=== PATIENT | male | born 1950 | race Caucasian/White ===

== ENCOUNTER 2021-08-20 13:06 | Emergency (ER) | payer OTHER ==
[~2021-08-20] VITALS: Ht 180.3 cm; Wt 117.0 kg
[2021-08-20] MEDS ORDERED: Amlodipine Bes2.5 MG PO (15:27)
[2021-08-20] MEDS ORDERED: BUPROPION HCL200 M2 PO (15:29)
[2021-08-20] MEDS ORDERED: FISH OIL 1,2001 EAC7 PO (15:29)
[2021-08-20] MEDS ORDERED: Flonase 0.05% N16 GM (15:30)
[2021-08-20] MEDS ORDERED: NOVOLOG FL100 UNIT/3 (15:31)
[2021-08-20] MEDS ORDERED: INSULANI (15:33)
[2021-08-20] MEDS ORDERED: Synthroid200 MCG PO (15:34)
[2021-08-20] MEDS ORDERED: LISI20 PO (15:34)
[2021-08-20] MEDS ORDERED: SILD50TA PO (15:35)
[2021-08-20] MEDS ORDERED: NITR100CA PO (15:35)
[2021-08-20] MEDS ORDERED: TAMS.4ER PO (15:36)
[2021-08-20] MEDS ORDERED: TRAZ50 (15:36)
[2021-08-20] MEDS ORDERED: Vitamin B Comple1 EA PO (15:36)
[2021-08-20] MEDS ORDERED: GABA100 PO (15:37)
[2021-08-20] MEDS ORDERED: ZOLP10 PO (15:37)
[2021-08-20] MEDS ORDERED: Acerola C500 MG PO (15:37)
[2021-08-20] MEDS ORDERED: AMOCLA875 PO (16:45)
== END 2021-08-20 16:55 | disposition home or self-care (01) ==
LOC: ER 13:06
DX: K57.32 Diverticulitis of large intestine without perforation or abscess without bleeding (principal); N39.0 Urinary tract infection, site not specified; E11.9 Type 2 diabetes mellitus without complications
CPT/HCPCS: 74177; 83605; 96374; 99285-25; A9270; J2060; Q9967

== ENCOUNTER 2021-08-21 20:35 | Emergency (ER) | payer OTHER ==
[~2021-08-21 20:35] MED LIST: AMOCLA875 PO; Acerola C500 MG PO; Amlodipine Bes2.5 MG PO; BUPROPION HCL200 M2 PO; FISH OIL 1,2001 EAC7 PO; Flonase 0.05% N16 GM; GABA100 PO; INSULANI; LISI20 PO; NITR100CA PO; NOVOLOG FL100 UNIT/3; SILD50TA PO; Synthroid200 MCG PO; TAMS.4ER PO; TRAZ50; Vitamin B Comple1 EA PO; ZOLP10 PO
[2021-08-22] MEDS ORDERED: NITR100CA PO (04:25)
== END 2021-08-21 21:15 | disposition left against medical advice (07) ==
LOC: ER 20:35
DX: Z53.21 Procedure and treatment not carried out due to patient leaving prior to being seen by health care provider (principal)

== ENCOUNTER 2021-08-21 23:50 | Emergency (ER) | payer OTHER ==
[~2021-08-21] VITALS: Ht 180.3 cm; Wt 117.0 kg
[2021-08-22 03:57] LABS: Source, Urine Catheter
[2021-08-22 04:01] LABS: BASOPHILS ABSOLUTE AUTO 0.08 K/mm3 (0.00-0.23); BASOPHILS PERCENT AUTO 1 % (0-2); EOSINOPHILS PERCENT AUTO 10 % (0-6); Hematocrit 39.8 % (37.0-53.0); Hemoglobin 13.4 g/dL (13.5-17.5); IMMATURE GRAN ABSOLUTE AUTO 0.06 K/mm3 (0.00-0.10); IMMATURE GRAN PERCENT AUTO 1 % (0-1); LYMPHOCYTES ABSOLUTE AUTO 2.52 K/mm3 (0.84-5.20); LYMPHOCYTES PERCENT AUTO 23 % (21-46); MONOCYTES ABSOLUTE AUTO 0.61 K/mm3 (0.16-1.47); MONOCYTES PERCENT AUTO 6 % (4-13); Mean Corpuscular HGB 32.1 pg (26.0-34.0); Mean Corpuscular HGB Conc 33.7 g/dL (31.5-36.5); Mean Corpuscular Volume 95 fL (80-100); Mean Platelet Volume 9.3 fL (9.1-12.4); NEUTROPHILS ABSOLUTE AUTO 6.41 K/mm3 (1.96-9.15); NEUTROPHILS PERCENT AUTO 59 % (41-73); Platelet Count 209 K/mm3 (150-400); RDW Standard Deviation 48.9 fL (35.1-46.3); Red Blood Cell Count 4.18 M/mm3 (4.30-5.90); White Blood Cell Count 10.78 K/mm3 (4.00-11.30)
[2021-08-22 04:02] LABS: Bilirubin, Urine Neg (Neg); Blood, Urine 5+ (Neg); Glucose Qualitative, Urine Neg (Neg); Ketones, Urine Neg (Neg); Leukocyte Esterase, Urine 2+ (Neg); Nitrite, Urine Pos (Neg); Protein, Urine 2+ (Neg); Specific Gravity, Urine 1.015 (1.003-1.022); Urobilinogen, Urine 1+ (Normal)
[2021-08-22 04:06] LABS: Appearance, Urine Hazy (Clear); Color, Urine Yellow (P-Yellow)
[2021-08-22 04:07] LABS: Bacteria Few /hpf; Red Blood Cells, Urine TNTC /hpf (0-2); Squamous Epithelial Cells Not Seen /hpf (Few)
[2021-08-22 04:15] LABS: Anion Gap 4 mmol/L (6-16); Blood Urea Nitrogen 21 mg/dL (8-24); Bun/Creatinine Ratio 17.6 (12.0-20.0); CO2, Blood 26 mmol/L (21-32); Calcium, Blood 8.6 mg/dL (8.5-10.1); Chloride, Blood 109 mmol/L (98-108); Creatinine, Blood 1.19 mg/dL (0.60-1.20); Glomerular Filtration Rate >60 (60-); Glucose, Blood 152 mg/dL (70-99); Potassium, Blood 3.8 mmol/L (3.5-5.5); Sodium, Blood 139 mmol/L (136-145)
[2021-08-22] MEDS ORDERED: NITR100CA PO (04:25)
== END 2021-08-22 06:35 | disposition home or self-care (01) ==
LOC: ER 23:50
PROVIDERS: Student in an Organized Health Care Education/Training Program
DX: N39.0 Urinary tract infection, site not specified (principal); E11.9 Type 2 diabetes mellitus without complications; F17.200 Nicotine dependence, unspecified, uncomplicated; Z88.8 Allergy status to other drugs, medicaments and biological substances; Z79.4 Long term (current) use of insulin; Z79.899 Other long term (current) drug therapy
CPT/HCPCS: 36415; 51702; 80048; 81001; 85025; 87086; 96374; 99283-25; J0696

== ENCOUNTER 2023-11-17 20:59 | Emergency (ER) | payer OTHER ==
[~2023-11-17] VITALS: Ht 180.3 cm; Wt 111.1 kg
[2023-11-17 21:19] VITALS: BP 163/80
[2023-11-17] MEDS ORDERED: Naprosyn500 MG PO (21:29)
== END 2023-11-17 22:17 | disposition home or self-care (01) ==
LOC: ER 20:59
DX: M53.3 Sacrococcygeal disorders, not elsewhere classified (principal); M54.50 Low back pain, unspecified; Z88.8 Allergy status to other drugs, medicaments and biological substances; Z79.899 Other long term (current) drug therapy; Z79.4 Long term (current) use of insulin; E11.9 Type 2 diabetes mellitus without complications; I10 Essential (primary) hypertension; F17.200 Nicotine dependence, unspecified, uncomplicated
CPT/HCPCS: 96372; 99283-25; J1885

== ENCOUNTER 2024-04-10 18:05 | Inpatient (IN) | payer OTHER ==
[~2024-04-10] VITALS: Ht 180.3 cm; Wt 93.8 kg
[~2024-04-10 18:05] MED LIST changes: +ALBU90OI INH; +FAMO20 PO; +INSULANPEN SC; +LISI5 PO; +LORA10ER PO; +Naprosyn500 MG PO; +OMEGA-3 + VITA1 EAC2 PO; +ROPI.25 PO; -SILD50TA PO; -TRAZ50; +TRAZ50 PO; +Viagra100 MG PO
[2024-04-10 18:48] LABS: Hematocrit 24.6 % (37.0-53.0); Hemoglobin 8.3 g/dL (13.5-17.5); Mean Corpuscular HGB 33.3 pg (26.0-34.0); Mean Corpuscular HGB Conc 33.7 g/dL (31.5-36.5); Mean Corpuscular Volume 99 fL (80-100); Mean Platelet Volume 11.1 fL (9.1-12.4); NRBC ABSOLUTE 0.04 K/mm3 (0.00-0.02); NRBC Auto 0.1 /100 WBC (0.0-0.2); RDW Coefficient Variation 15.5 % (11.7-14.2); RDW Standard Deviation 53.1 fL (35.1-46.3); Red Blood Cell Count 2.49 M/mm3 (4.30-5.90)
[2024-04-10 18:56] LABS: White Blood Cell Count 59.54 K/mm3 (4.00-11.30)
[2024-04-10 18:57] LABS: Platelet Count 36 K/mm3 (150-400)
[2024-04-10 19:16] LABS: Albumin, Blood 3.3 g/dL (3.4-5.0); Albumin/Globulin Ratio 0.6 (0.8-1.8); BASOPHILS PERCENT MAN 0 % (0-2); Bilirubin, Total 0.6 mg/dL (0.1-1.0); Bun/Creatinine Ratio 9.1 (12.0-20.0); Calcium, Blood 14.1 mg/dL (8.5-10.1); Creatinine, Blood 6.79 mg/dL (0.60-1.20); EOSINOPHILS ABSOLUTE MAN 0.59 K/mm3 (0.00-0.68); EOSINOPHILS PERCENT MAN 1 % (0-6); Globulin, Blood 5.4 g/dL (2.2-4.0); LYMPHOCYTES % ATYPICAL MANUAL 23 % (0-0); LYMPHOCYTES ABSOLUTE MAN 54.18 K/mm3 (0.84-5.20); LYMPHOCYTES PERCENT MAN 68 % (21-46); MONOCYTES PERCENT MAN 0 % (4-13); MYELOCYTE ABSOLUTE MAN 0.59 K/mm3 (0.00-0.00); MYELOCYTE PERCENT MAN 1 % (0-0); NEUTROPHILS ABSOLUTE MAN 3.57 K/mm3 (1.96-9.15); Potassium, Blood 4.2 mmol/L (3.5-5.5); SEG NEUTROPHILS PERCENT MAN 6 % (41-73); TOTAL CELLS COUNTED 100; Total Protein, Blood 8.7 g/dL (6.4-8.2)
[2024-04-10 19:17] LABS: PROMYELOCYTE ABSOLUTE MAN 0.59 K/mm3 (0.00-0.00); PROMYELOCYTE PERCENT MAN 1 % (0-0)
[2024-04-10] MEDS ORDERED: NS 1,000 ML IV SCH ×2 (20:50→21:25)
[2024-04-10] MEDS ORDERED: Ondansetron HCl 2 MG / ML 2ML Vial IV PRN (21:20)
[2024-04-10] MEDS ORDERED: Acetaminophen 325 MG TABLET PO PRN (21:25)
[2024-04-10] MEDS ORDERED: Albuterol 2.5 MG/3 ML VIAL INH PRN (21:30)
[2024-04-10 22:16] LABS: Source, Urine Clean Catch
[2024-04-10] MEDS ORDERED: rOPINIRole HCl 1 MG Tab PO ONE (22:20)
[2024-04-10] MEDS ORDERED: rOPINIRole HCl 0.25 MG Tab PO ONE (22:25)
[2024-04-10 22:26] LABS: Appearance, Urine Clear (Clear); Bilirubin, Urine Neg (Neg); Blood, Urine 4+ (Neg); Color, Urine Yellow (P-Yellow); Glucose Qualitative, Urine Neg (Neg); Ketones, Urine Neg (Neg); Leukocyte Esterase, Urine Neg (Neg); Nitrite, Urine Neg (Neg); Protein, Urine 3+ (Neg); Urobilinogen, Urine NORM (Normal); pH, Urine 6.5 (5.0-8.0)
[2024-04-10 22:41] LABS: Red Blood Cells, Urine 0-2 /hpf (0-2); Squamous Epithelial Cells Few /hpf (Few); White Blood Cells, Urine 0-2 /hpf (0-5)
[2024-04-10 22:42] LABS: Amorphous Light (0-Heavy); Bacteria Mod /hpf
[2024-04-10] MEDS ORDERED: TraZODone HCl 50 MG Tab PO PRN (23:40)
[2024-04-11] MEDS ORDERED: Zolpidem Tartrate 5 MG Tab PO SCH
[2024-04-11] MEDS ORDERED: Calcitonin Salmon 200 IU/ML 2ML Vial SC SCH (00:14)
[2024-04-11 02:06] VITALS: BP 157/76
[2024-04-11 03:57] LABS: Hematocrit 23.8 % (37.0-53.0); Mean Corpuscular HGB 33.3 pg (26.0-34.0); Mean Corpuscular HGB Conc 33.6 g/dL (31.5-36.5); Mean Corpuscular Volume 99 fL (80-100); Mean Platelet Volume 10.6 fL (9.1-12.4); NRBC ABSOLUTE 0.06 K/mm3 (0.00-0.02); NRBC Auto 0.1 /100 WBC (0.0-0.2); RDW Coefficient Variation 15.4 % (11.7-14.2); RDW Standard Deviation 52.9 fL (35.1-46.3)
[2024-04-11 04:06] LABS: Platelet Count 35 K/mm3 (150-400)
[2024-04-11 04:17] LABS: Magnesium, Blood 2.8 mg/dL (1.6-2.4)
[2024-04-11 04:29] LABS: Albumin, Blood 3.1 g/dL (3.4-5.0); Albumin/Globulin Ratio 0.6 (0.8-1.8); Bilirubin, Total 0.6 mg/dL (0.1-1.0); Bun/Creatinine Ratio 9.8 (12.0-20.0); Calcium, Blood 13.5 mg/dL (8.5-10.1); Creatinine, Blood 6.13 mg/dL (0.60-1.20); Globulin, Blood 5.1 g/dL (2.2-4.0); Phosphorus, Blood 5.6 mg/dL (2.5-4.9); Potassium, Blood 4.3 mmol/L (3.5-5.5); Total Protein, Blood 8.2 g/dL (6.4-8.2)
[2024-04-11 04:59] LABS: BASOPHILS PERCENT MAN 0 % (0-2); EOSINOPHILS PERCENT MAN 0 % (0-6); LYMPHOCYTES % ATYPICAL MANUAL 24 % (0-0); LYMPHOCYTES ABSOLUTE MAN 57.96 K/mm3 (0.84-5.20); LYMPHOCYTES PERCENT MAN 66 % (21-46); MONOCYTES ABSOLUTE MAN 0.64 K/mm3 (0.16-1.47); MONOCYTES PERCENT MAN 1 % (4-13); NEUTROPHILS ABSOLUTE MAN 5.79 K/mm3 (1.96-9.15); SEG NEUTROPHILS PERCENT MAN 9 % (41-73); TOTAL CELLS COUNTED 100
[2024-04-11 05:06] VITALS: BP 145/81
--- NOTE | 2024-04-11 05:09 | NUR ---
CRITIAL LAB VALUES CALLED TO DR SINGER.
--- NOTE | 2024-04-11 05:32 | NUR ---
SHIFT SUMMERY PT HAS BEEN ST ON THE STATION WORKER. BP WNL. OXYGEN SAT >90% ON ROOM AIR. PT W/GEN WEAKNESS. HE IS ALERT AND ORIENTED X 4. AFEBRILE. ADMITTED TO ICU APPX MIDNIGHT, NO ACUTE CHANGES THIS SHIFT. ALL CONSULTS CALLED ORDERED.
[2024-04-11] MEDS ORDERED: Levothyroxine Sodium 0.1 MG Tab PO SCH (06:00)
[2024-04-11] MEDS ORDERED: Insulin Human Lispro 100 Units/ML 3ML Syringe SC SCH (07:30)
[2024-04-11 08:00] VITALS: BP 124/57
[2024-04-11] MEDS ORDERED: AmLODIPine Besylate 5 MG Tab PO SCH (09:00)
[2024-04-11] MEDS ORDERED: Heparin Sodium,Porcine 5,000 UNIT/0.5 ML SDV SC SCH (09:00)
[2024-04-11] MEDS ORDERED: Tamsulosin HCl 0.4 MG Cap PO SCH (09:00)
--- NOTE | 2024-04-11 10:11 | NUR ---
Patient is lying in bed and alert. He tells me about his new diagnosis and his fears about cancer. He shares about his solid friend support and his strong [employer] swetha. I provided anxiety containment, theraeputic listening, gentle certified credit counselor and prayer. Patient responded well and showed signs of reduced stress.
[2024-04-11] MEDS ORDERED: rOPINIRole HCl 0.25 MG Tab PO SCH (12:25)
[2024-04-11] MEDS ORDERED: Darbepoetin Alfa In Albumn Sol 40 MCG/0.4 ML SC SCH (16:00)
--- NOTE | 2024-04-11 16:05 | NUR ---
INITAL VISIT. MET WITH BRYANNA TO ASSESS SYMPTOMS HE REPORTED THAT HE HAS BEEN WEAK APPROX 4-5 MONTHES HE REPORTED HE HAS LOST 40LBS DURING THAT TIME. HE REPORTED THAT HE HAS BEEN STRUGGLING WITH CONSTIPATION. HE SAID THAT HE HAD A BM YESTERDAY BUT HAD NOT HAD ONE FOR 6 DAYS PRIOR, AND HE FELT THAT HE STILL NEEDED TO HAVE A BM. HE HAS HAD BOUTS OF NAUSEA THAT HAS CONTRIBUTED TO HIS LOSS OF APPETITE, AND WT LOSS. PC WILL REAMIN AVALIABLE.
[2024-04-11 17:32] VITALS: BP 119/71
[2024-04-11] MEDS ORDERED: ONDA4ODT PO (17:46)
--- NOTE | 2024-04-11 18:06 | NUR ---
SUMMARY PT A/O X4. C/O RESTLESS LEGS TODAY. GOT ROPINIROLE ORDER WHICH IS HELPING. POOR APPETITE. AWAITING PERMACATH PLACEMENT. DR. SYLVESTER WILL BE PLACING TOMORROW. NPO AFTER MIDNIGHT. DR. PEARSON UPDATED ON PLAN FOR PLACEMENT BY SURGICAL TEAM. PT HAS BEEN OOB TO BATHROOM AND USING URINAL AT BEDSIDE. STEADY ON FEET STANDBY ASSIST FOR CORDS. DR. SILVER WAS IN TO SEE PT, NO NEW ORDERS AT THIS TIME. NO SIGN OF DISTRESS. USING CALL LIGHT APPROPRIATELY.
[2024-04-11 19:39] VITALS: BP 132/72
--- NOTE | 2024-04-11 19:51 | NUR ---
ASSUMED CARE ASSUMED CARE AT 1900. PT A/O X 4. PLEASANT AND COOPERATIVE WITH CARE. DENIES PAIN OR N/V. DOES C/O BEING "A LITTLE QUEASY" FOR THE PAST COUPLE OF MONTHS. VSS. NS AT 75ML/HR. UP WITH ONE ASSIST TO BRP. PLAN FOR NPO AT 0000. CALL LIGHT IN REACH
[2024-04-11] MEDS ORDERED: Insulin Glargine-Yfgn 100 Unit/mL 3 ML SYR SC SCH (21:00)
[2024-04-11 23:35] VITALS: BP 128/69
[2024-04-12] VITALS (11 sets, daily range): BP systolic 98–143; BP diastolic 62–87
[2024-04-12 02:26] LABS: Hematocrit 22.3 % (37.0-53.0); Hemoglobin 7.5 g/dL (13.5-17.5); Mean Corpuscular HGB 33.6 pg (26.0-34.0); Mean Corpuscular HGB Conc 33.6 g/dL (31.5-36.5); Mean Corpuscular Volume 100 fL (80-100); Mean Platelet Volume 11.5 fL (9.1-12.4); NRBC ABSOLUTE 0.06 K/mm3 (0.00-0.02); NRBC Auto 0.1 /100 WBC (0.0-0.2); RDW Coefficient Variation 15.8 % (11.7-14.2); RDW Standard Deviation 53.7 fL (35.1-46.3); Red Blood Cell Count 2.23 M/mm3 (4.30-5.90)
[2024-04-12 02:33] LABS: Platelet Count 30 K/mm3 (150-400); White Blood Cell Count 65.77 K/mm3 (4.00-11.30)
[2024-04-12 02:39] LABS: Anion Gap 13 mmol/L (3-11); Blood Urea Nitrogen 56 mg/dL (8-24); Bun/Creatinine Ratio 10.9 (12.0-20.0); CO2, Blood 20 mmol/L (21-32); Calcium, Blood 12.2 mg/dL (8.5-10.1); Chloride, Blood 114 mmol/L (98-108); Creatinine, Blood 5.12 mg/dL (0.60-1.20); Glomerular Filtration Rate 11 (60-); Glucose, Blood 169 mg/dL (70-99); Magnesium, Blood 2.1 mg/dL (1.6-2.4); Phosphorus, Blood 4.4 mg/dL (2.5-4.9); Potassium, Blood 4.2 mmol/L (3.5-5.5); Sodium, Blood 143 mmol/L (136-145)
[2024-04-12] MEDS ORDERED: Promethazine HCl 25 MG Tab PO PRN (03:00)
[2024-04-12] MEDS ORDERED: Promethazine HCl 25 MG Tab PO ONE (03:00)
[2024-04-12 03:05] LABS: BASOPHILS PERCENT MAN 0 % (0-2); EOSINOPHILS PERCENT MAN 0 % (0-6); LYMPHOCYTES % ATYPICAL MANUAL 30 % (0-0); LYMPHOCYTES ABSOLUTE MAN 59.19 K/mm3 (0.84-5.20); LYMPHOCYTES PERCENT MAN 60 % (21-46); MONOCYTES PERCENT MAN 0 % (4-13); NEUTROPHILS ABSOLUTE MAN 6.57 K/mm3 (1.96-9.15); SEG NEUTROPHILS PERCENT MAN 10 % (41-73); TOTAL CELLS COUNTED 100
--- NOTE | 2024-04-12 05:35 | NUR ---
SHIFT SUMMARY NO ACUTE EVENTS T/O NIGHT. PT C/O N/V INTERMITTENTLY T/O NIGHT. VOMITED TWICE. CALL TO HOSP D/T PT REMAINING N/V AFTER ZOFRAN. ORDERS RECEIVED. HOSP ALSO NOTIFIED OF CRITICAL LABS. PT ALSO C/O RESTLESS LEGS. MEDICATED PER EMAR AND WARM BLANKETS ON LEGS WITH VOICED RELIEF. STATES WORSE THIS MORNING, AND REQUESTING HIS REQUIP EARLY. THIS RN STATES THAT I'LL CALL THE DOCTOR TO ASK AND PT SPEAKS LOUDLY "I'M JUST VOICING A CONCERN, I'M HAVING SURGERY AND CAN'T BE MOVING AROUND" WHILE WAVING ARMS AND LEGS. EDUCATED PT ON THE NEED FOR AN ORDER TO GIVE IT EARLY AND ASKS IF ANY OTHER MEDS HELP. PT STATES ONLY REQUIP HELPS. VSS. ST RATE 100'S. PT NPO SINCE 0000. VOIDS IN BR AND AT BEDSIDE WITH URINAL. CALL LIGHT IN REACH. WILL REPORT TO ONCOMING RN.
--- NOTE | 2024-04-12 06:25 | NUR ---
WATCH PT STATES HE TOOK OFF A BLACK WATCH YESTERDAY WHEN IV WAS BEING PLACED AND SET IT ON HIS TABLE. TABLE, LINEN AND PT BELONGING BAG SEARCHED BUT UNABLE TO FIND IT.
[2024-04-12] MEDS ORDERED: NS 1,000 ML IV SCH (06:35)
--- NOTE | 2024-04-12 07:35 | NUR ---
SHIFT ASSESSMENT ASSUMED CARE OF PT @ 0700, BEDSIDE REPORT RECEIVED FROM [facility] NURSE. PT IN BED SITTING UPRIGHT, A&OX4, FOLLOWING COMMANDS. STANDS AT BEDSIDE TO USE URINAL WITH NURSE, PT STATES HE DOES NOT USE ANY ASSISTIVE DEVICES AT HOME. PT ADVISED TO USE CALL LIGHT WHEN NEEDING TO STAND, HAS BEEN USING CALL LIGHT T/O NIGHT. PT C/O GENERALIZED SICKNESS, HASN'T FELT WELL FOR PAST COUPLE MONTHS. APPETITE DECREASED, MODERATE NAUSEA, HAS NOT NEEDED MEDICATION FROM THIS RN. PER DR. PEARSON WE WILL HOLD OFF ON PERMACATH PLACEMENT.
[2024-04-12] MEDS ORDERED: Piperacillin/Tazobactam Sod 3.375 GM in NS 100 ML IV SCH (08:00)
[2024-04-12] MEDS ORDERED: Azithromycin 500 MG in NS 250 ML IV SCH (09:00)
--- NOTE | 2024-04-12 09:05 | NUR ---
PROVIDER UPDATE: Dr Mendes called and notified of fall. Pt states he got dizzy when he attempted to get up from toilet alone after he was instructed to call before standing. Pt also states that hes "always kind of dizzy". Pt fell onto left side; no tenderness to palpation. Pt denies hitting his head. No new orders.
--- NOTE | 2024-04-12 09:20 | NUR ---
UPDATE DR SILVER AT BEDSIDE, PLAN FOR BONE MARROW ASPIRATE THIS AFTERNOON.
[2024-04-12 10:14] LABS: Albumin, Blood 2.9 g/dL (3.4-5.0); Anion Gap 12 mmol/L (3-11); Blood Urea Nitrogen 52 mg/dL (8-24); CO2, Blood 20 mmol/L (21-32); Calcium, Blood 11.1 mg/dL (8.5-10.1); Chloride, Blood 115 mmol/L (98-108); Creatinine, Blood 4.74 mg/dL (0.60-1.20); Glomerular Filtration Rate 12 (60-); Glucose, Blood 152 mg/dL (70-99); Phosphorus, Blood 3.8 mg/dL (2.5-4.9); Potassium, Blood 3.7 mmol/L (3.5-5.5); Sodium, Blood 143 mmol/L (136-145)
[2024-04-12] MEDS ORDERED: Sodium Bicarbonate 650 MG Tab PO SCH (10:45)
--- NOTE | 2024-04-12 11:37 | NUR ---
Spiritual Care Attempted At the referral of Chaplain Gómez, a visit was attempted but Pt. was soundly somnolent and seemed unarousable. Did not disturb Pt. Will remain available to Pt. through the day.
[2024-04-12] MEDS ORDERED: Polyethylene Glycol 3350 17 gm PO PRN (13:20)
--- NOTE | 2024-04-12 17:34 | NUR ---
SHIFT SUMMARY PT REMAINS A&OX4, COOPERATIVE WITH CARE. DENIES ANY NEW PAINS [id number] TO FALL. AMBULATED WITH GAIT BELT & NURSING ASSIST TO TOILET THIS EVENING WITHOUT TROUBLE. PT APOLOGETIC FOR NOT PULLING DRIP MOLDER STRING AND WAITING FOR HELP BACK TO BED EARLIER TODAY. BONE MARROW ASPIRATE COMPLETE, BANDAID OVER WOUND, NO BLEEDING NOTED. VS REMAIN STABLE. PT TOLERATING SMALL BITES OF FOOD BUT OVERALL APPETITE IS VERY POOR.
[2024-04-12] MEDS ORDERED: Thiamine HCl 100 MG Tab PO SCH (17:50)
--- NOTE | 2024-04-12 21:19 | NUR ---
ASSUMED CARE CARE WAS ASSUMED OF PT AT 1900. PT A/O X4, ABLE TO ANSWER QUESTIONS APPROPRIATELY. PT APPEARS SLIGHTLY IRRITABLE. PT 1 ASSIST WITH URINAL AT BEDSIDE, ABLE TO MAKE NEEDS KNOWN. PT COMPLAINING OF HAVING NO APETITE. PT ON RA, O2 SATS > 90%. CARDIAC MONITORING REFLECTS NSR, HR 80s-90s. SBP 120s. PT AFEBRILE.
[2024-04-13] VITALS (13 sets, daily range): BP systolic 101–131; BP diastolic 50–82
[2024-04-13 03:35] LABS: Hematocrit 19.5 % (37.0-53.0); Hemoglobin 6.6 g/dL (13.5-17.5); Mean Corpuscular HGB 33.8 pg (26.0-34.0); Mean Corpuscular HGB Conc 33.8 g/dL (31.5-36.5); Mean Corpuscular Volume 100 fL (80-100); Mean Platelet Volume 11.2 fL (9.1-12.4); NRBC ABSOLUTE 0.06 K/mm3 (0.00-0.02); NRBC Auto 0.1 /100 WBC (0.0-0.2); RDW Coefficient Variation 15.9 % (11.7-14.2); Red Blood Cell Count 1.95 M/mm3 (4.30-5.90); White Blood Cell Count 46.04 K/mm3 (4.00-11.30)
[2024-04-13 03:47] LABS: Platelet Count 23 K/mm3 (150-400)
[2024-04-13 03:49] LABS: Albumin, Blood 2.7 g/dL (3.4-5.0); Anion Gap 12 mmol/L (3-11); Blood Urea Nitrogen 48 mg/dL (8-24); Bun/Creatinine Ratio 11.1 (12.0-20.0); CO2, Blood 22 mmol/L (21-32); Chloride, Blood 115 mmol/L (98-108); Creatinine, Blood 4.34 mg/dL (0.60-1.20); Glomerular Filtration Rate 14 (60-); Glucose, Blood 139 mg/dL (70-99); Magnesium, Blood 2.3 mg/dL (1.6-2.4); Phosphorus, Blood 3.8 mg/dL (2.5-4.9); Potassium, Blood 3.6 mmol/L (3.5-5.5); Sodium, Blood 145 mmol/L (136-145)
[2024-04-13 04:49] LABS: BAND PERCENT MAN 1 % (0-8); BASOPHILS PERCENT MAN 0 % (0-2); EOSINOPHILS PERCENT MAN 0 % (0-6); LYMPHOCYTES % ATYPICAL MANUAL 28 % (0-0); LYMPHOCYTES ABSOLUTE MAN 40.51 K/mm3 (0.84-5.20); LYMPHOCYTES PERCENT MAN 60 % (21-46); MONOCYTES ABSOLUTE MAN 0.46 K/mm3 (0.16-1.47); MONOCYTES PERCENT MAN 1 % (4-13); PLASMA CELL ABSOLUTE MAN 0.46 K/mm3 (0.00-0.00); PLASMA CELLS PERCENT MAN 1 % (0-0); SEG NEUTROPHILS PERCENT MAN 9 % (41-73); TOTAL CELLS COUNTED 100
--- NOTE | 2024-04-13 05:49 | NUR ---
SHIFT SUMMARY PT REMAINS A/O X4, ABLE TO ANSWER QUESTIONS APPROPRIATELY. PT ABLE TO URINAL AT BEDSIDE WITH ASSISTANCE. PT COMPLAINED OF NAUSEA OCCASIONALLY THIS SHIFT WITH NO EMESIS. PT ABLE TO TOLERATE SOME PO FLUIDS. NOTIFIED HOSPITALIST OF LABS THIS MORNING, PT TO RECIEVE 1 UNIT PRBC. PT REMAINS ON RA, O2 SATS > 90%. CARDIAC MONITORING REFLECTS NSR AT THIS TIME, HR 80s. SBP 110s. PT AFEBRILE THIS SHIFT. PIV X2. NS INFUSING @ 50 mL/HR.
[2024-04-13] MEDS ORDERED: NS 500 ML IV SCH (05:55)
--- NOTE | 2024-04-13 07:00 | NUR ---
ASSUMED CARE OF PT AT 0700. PT RESTING ON HOSPITAL BED, AROUSES TO VERBAL STIMULI AND RESPONDS APPROPRIATELY. ON CONTINOUS ROUGH PLANER TENDER- SINUS RATE OF 80-90S OBSERVED. BP STABLE. PT IS CURRENTLY RECIEVING TRANSFUSION OF 1 UNIT OF BLOOD AND TOLERATING WELL. PT LUNGS CLEAR T/O AND HE IS ON RA, SATS>95%. USING CALL LIGHT APPROPRIATELY TO USE RR, STAND BY ASSIST NECCESSARY DUE TO RECENT FALL. CALL LIGHT W/ IN REACH. WILL CONTINUE TO MONITOR.
[2024-04-13] MEDS ORDERED: Vitamin B Cmplx/Vit C/Folic Ac 1 Tab PO SCH (09:00)
--- NOTE | 2024-04-13 09:15 | NUR ---
TRANSFER SUMMARY PT COMPLETES TRANSFUSION OF 1 UNIT PRBCS. TRANSFERRED VIA WC TO PCU ROOM 1. REPORT CALLED TO RALEIGH NATH. PT AOX4 AND COOPERATIVE.
--- NOTE | 2024-04-13 09:30 | NUR ---
PT TRANSFER ASSUMED CARE OF PT. AAOX4. VSS. TRANSFERED FROM WHEELCHAIR TO BED 1 PERSON MOD ASSIST. ORIENTED TO ROOM + CALL LIGHT USE, WATER GIVEN, DENIES FURTHER NEEDS, BED ALARM ON FOR SAFETY, CALL LIGHT IN REACH.
[2024-04-13] MEDS ORDERED: rOPINIRole HCl 0.25 MG Tab PO SCH ×2 (12:57→15:30)
[2024-04-13 13:35] LABS: HEP-IND THROMBOCYTOPEN PF4,IGG 0.071 OD (<=0.399)
--- NOTE | 2024-04-13 17:12 | NUR ---
SHIFT SUMMARY PT TRASNFER FROM ICU TODAY. AAOX4/FLAT AFFECT/IMPULSIVE AT TIMES. PT SBA TO TRANSFER, BED ALARM ON FOR SAFETY. DENIES DISCOMFORT/NAUSEA SINCE TRANSFER. GOOD URINE OUTPUT THIS SHIFT, CLEAR/YELLOW. 2ND UNIT OF PRBCs FINISHING INFUSING NOW. VSS. TELEMTRY NSR TO ST. NS AT 50cc PER HR. LS CLEAR. TINGLING TO BLE AT BASELINE. SCDs FOR DVT PROPHOLYXIS. PT USES CALL LIGHT INTERMITTENTLY, IMPULSIVE AT TIMES. PT CURRENTLY RESTING IN BED WITH CALL LIGHT IN REACH.
--- NOTE | 2024-04-14 00:23 | NUR ---
UPDATE AT APPROXIMATELY 00:00 PT CALLED FARM BOSS INTO ROOM DUE TO FEELING "WET". FARM BOSS ALERTED THIS RN THAT PT HAD PULLED OUT HIS L FA IV AND WAS BLEEDING. PT WAS FOUND COVERED IN BLOOD, BLOOD SATURATED GOWN AND SOME OF THE BED SHEETS. PT REPORTS FEELING WELL AND THERE HAS BEEN NO CHANGE IN STATUS. PRESSURE DRESSING APPLIED TO AREA AND BLEEDING STOPPED. PT AND BED CLEANED.
[2024-04-14 03:23] VITALS: BP 104/50
[2024-04-14 04:19] LABS: Hematocrit 21.4 % (37.0-53.0); Hemoglobin 7.3 g/dL (13.5-17.5); Mean Corpuscular HGB Conc 34.1 g/dL (31.5-36.5); Mean Platelet Volume 11.4 fL (9.1-12.4); NRBC ABSOLUTE 0.06 K/mm3 (0.00-0.02); NRBC Auto 0.2 /100 WBC (0.0-0.2); RDW Coefficient Variation 17.7 % (11.7-14.2); RDW Standard Deviation 57.7 fL (35.1-46.3); Red Blood Cell Count 2.28 M/mm3 (4.30-5.90); White Blood Cell Count 37.73 K/mm3 (4.00-11.30)
[2024-04-14 04:22] LABS: Mean Corpuscular Volume 94 fL (80-100)
[2024-04-14 04:23] LABS: Platelet Count 21 K/mm3 (150-400)
[2024-04-14 04:35] LABS: Albumin, Blood 2.5 g/dL (3.4-5.0); Anion Gap 11 mmol/L (3-11); Blood Urea Nitrogen 45 mg/dL (8-24); Bun/Creatinine Ratio 11.4 (12.0-20.0); CO2, Blood 22 mmol/L (21-32); Calcium, Blood 11.4 mg/dL (8.5-10.1); Chloride, Blood 114 mmol/L (98-108); Creatinine, Blood 3.94 mg/dL (0.60-1.20); Glomerular Filtration Rate 15 (60-); Glucose, Blood 115 mg/dL (70-99); Magnesium, Blood 2.1 mg/dL (1.6-2.4); Potassium, Blood 3.3 mmol/L (3.5-5.5); Sodium, Blood 144 mmol/L (136-145)
[2024-04-14 04:39] LABS: BAND PERCENT MAN 5 % (0-8); BASOPHILS ABSOLUTE MAN 0.37 K/mm3 (0.00-0.23); BASOPHILS PERCENT MAN 1 % (0-2); EOSINOPHILS PERCENT MAN 0 % (0-6); MONOCYTES ABSOLUTE MAN 0.75 K/mm3 (0.16-1.47); MONOCYTES PERCENT MAN 2 % (4-13); NEUTROPHILS ABSOLUTE MAN 7.54 K/mm3 (1.96-9.15); SEG NEUTROPHILS PERCENT MAN 15 % (41-73); TOTAL CELLS COUNTED 100
[2024-04-14 04:40] LABS: LYMPHOCYTES % ATYPICAL MANUAL 18 % (0-0); LYMPHOCYTES ABSOLUTE MAN 29.42 K/mm3 (0.84-5.20); LYMPHOCYTES PERCENT MAN 60 % (21-46)
--- NOTE | 2024-04-14 04:51 | NUR ---
SHIFT SUMMARY PT IS A&O X4, ABLE TO MAKE NEEDS KNOWN. IMPULSIVE AT TIMES, BED ALARM ON. PT IS SBA, USES URINAL AT BEDSIDE. VSS, LUNGS CLEAR, SPO2 >93% RA. PT HAD TEMPERATURE OF 100.4 AT BEGINNING OF SHIFT. ADMINISTERED TYLENOL PER EMAR AND TURNED DOWN TEMPERATURE OF ROOM. TEMPERATURE THEN REMAINED WNL FOR REMAINDER OF SHIFT. NS INFUSING. PT DENIES SOB OR CP. PT IS RESTING IN BED, CALL LIGHT WITHIN REACH, BED IN LOWEST POSITION, BREATHING EVEN AND UNLABORED.
[2024-04-14] MEDS ORDERED: Potassium Chloride 20 MEQ TabCR PO ONE (06:00)
[2024-04-14 07:33] VITALS: BP 121/69
[2024-04-14 10:56] VITALS: BP 112/54
[2024-04-14] MEDS ORDERED: Calcium Carbonate 500 MG Tab Chew PO PRN (14:50)
[2024-04-14 15:42] VITALS: BP 130/69
--- NOTE | 2024-04-14 17:47 | NUR ---
SHIFT SUMMARY NO ACUTE CHANGES THIS SHIFT. PT A&OX4. SP02>90% ON RA. TELEMETRY SHOWS NSR, HR MOSTLY 80'S. 100'S W/ AMBULATION. PT DENIES PAIN. C/O OF ACID REFLUX. CALL PLACED TO MD HOLLAND. MD HOLLAND W/ ORDERS FOR TUMS, SEE EMAR. PT STATES TODAY IS THE "FIRST BREAKFAST IN 5 DAYS" THAT HES HAD APPETITE TO EAT. SHORTLY AFTER, DEVELOPED LOOSE STOOL. PT STOOD AT BESIDE W/ FWW TO VOID W/ URINAL. AMBLUATED TO BATHROOM W/ ASSISTANCE AND FWW FOR BM. ABX INFUSED PER EMAR. CALL LIGHT IN REACH. PT RESTING IN ROOM.
--- NOTE | 2024-04-14 19:56 | NUR ---
PATIENT INSISTING THAT HE NEEDS HIS REQUIP OFF SCHEDULE. DISCUSSED WHEN HE TAKE IT AT HOME, AND MEDICATED ACCORDINGLY. MEDICATION GIVEN EARLY PER PATIENT REQUEST/INSISTENCE.
[2024-04-14 20:56] VITALS: BP 138/73
[2024-04-14 20:57] VITALS: BP 136/77
--- NOTE | 2024-04-14 21:08 | NUR ---
UPDATE THIS RN ALONG WITH WILLI CARDONA RN NOTICED TELEMETRY CHANGES WITH HEART RATE IN THE 180-200'S. BOTH RN'S TO BEDSIDE, PT NOTED TO BE ALERT AND LYING ON HIS SIDE. PT DENIED ANY CP, PRESSURE OR DIZZINESS. VITAL TAKEN WITH SBP IN THE 130'S. EKG TAKEN TO CONFIRM TELEMETRY, EKG READ SR 90'S. EKG PLACED IN CHART. TELEMETRY LEADS, STICKERS AND ADAPTER CHANGED. SAMANTHA RIVERA OF THIS NOTE
--- NOTE | 2024-04-14 21:40 | NUR ---
EVENING BLOOD SUGAR 142.
[2024-04-15 04:10] LABS: Hematocrit 22.2 % (37.0-53.0); Hemoglobin 7.5 g/dL (13.5-17.5)
[2024-04-15 04:30] LABS: Albumin, Blood 2.7 g/dL (3.4-5.0); Anion Gap 11 mmol/L (3-11); Blood Urea Nitrogen 38 mg/dL (8-24); Bun/Creatinine Ratio 10.6 (12.0-20.0); CO2, Blood 21 mmol/L (21-32); Calcium, Blood 11.7 mg/dL (8.5-10.1); Chloride, Blood 112 mmol/L (98-108); Creatinine, Blood 3.57 mg/dL (0.60-1.20); Glomerular Filtration Rate 17 (60-); Glucose, Blood 159 mg/dL (70-99); Magnesium, Blood 1.9 mg/dL (1.6-2.4); Phosphorus, Blood 3.1 mg/dL (2.5-4.9); Sodium, Blood 141 mmol/L (136-145)
[2024-04-15 04:34] VITALS: BP 138/64
[2024-04-15] MEDS ORDERED: Potassium Chloride 20 MEQ TabCR PO ONE (06:00)
[2024-04-15 08:02] VITALS: BP 126/81
[2024-04-15 08:13] LABS: Hematocrit 22.5 % (37.0-53.0); Hemoglobin 7.5 g/dL (13.5-17.5); Mean Corpuscular HGB 32.2 pg (26.0-34.0); Mean Corpuscular HGB Conc 33.3 g/dL (31.5-36.5); Mean Corpuscular Volume 97 fL (80-100); Mean Platelet Volume 10.4 fL (9.1-12.4); NRBC ABSOLUTE 0.06 K/mm3 (0.00-0.02); NRBC Auto 0.1 /100 WBC (0.0-0.2); RDW Coefficient Variation 17.5 % (11.7-14.2); RDW Standard Deviation 58.2 fL (35.1-46.3); Red Blood Cell Count 2.33 M/mm3 (4.30-5.90); White Blood Cell Count 42.73 K/mm3 (4.00-11.30)
[2024-04-15 08:25] LABS: Platelet Count 22 K/mm3 (150-400)
[2024-04-15 09:08] LABS: BASOPHILS PERCENT MAN 0 % (0-2); LYMPHOCYTES % ATYPICAL MANUAL 12 % (0-0); TOTAL CELLS COUNTED 100
[2024-04-15 09:17] LABS: EOSINOPHILS ABSOLUTE MAN 0.42 K/mm3 (0.00-0.68); EOSINOPHILS PERCENT MAN 1 % (0-6); LYMPHOCYTES ABSOLUTE MAN 34.61 K/mm3 (0.84-5.20); LYMPHOCYTES PERCENT MAN 69 % (21-46); MONOCYTES PERCENT MAN 0 % (4-13); NEUTROPHILS ABSOLUTE MAN 7.69 K/mm3 (1.96-9.15); SEG NEUTROPHILS PERCENT MAN 18 % (41-73)
[2024-04-15 11:45] VITALS: BP 123/73
[2024-04-15] MEDS ORDERED: LevoFLOXacin 750 MG Tab PO ONE (15:50)
[2024-04-15] MEDS ORDERED: B-1100 M2 PO (16:28)
[2024-04-15] MEDS ORDERED: B-COMPLEX WITH1 EAC2 PO (16:28)
[2024-04-15] MEDS ORDERED: PROBIOTIC1 EA13 PO ×2 (16:30→16:36)
[2024-04-15] MEDS ORDERED: LEVFLO500 PO (16:34)
--- NOTE | 2024-04-15 17:28 | NUR ---
DISCHARGE: PT HAS BEEN A&Ox4, SBA FOR AMBULATION. PT HAS DENIED SOB, O2 SATS >93% ON RA. PT HAS DENIED CP, SR/ST ON MONITOR W/RATE 90s-100s. PT HAS BEEN CLEARED FOR DISCHARGE HOME BY PROVIDER. ALL IV ACCESS DC'd WNL. PT DRESSES SELF. DC PAPERWORK AND INSTRUCTIONS PROVIDED, ALL QUESTIONS HAVE BEEN ANSWERED. PT ESCORTED FROM UNIT VIA W/C W/OUT INCIDENT.
== END 2024-04-15 17:24 | disposition home or self-care (01) | DRG 682 ==
LOC: ER 18:05 → ERHOLD 21:20 → ICUE 21:20 → ER 21:20 → ICUE 23:40 → PCU 04-13 08:46
PROVIDERS: Internal Medicine; Internal Medicine Nephrology; Nurse Practitioner Acute Care; Student in an Organized Health Care Education/Training Program; ADMIT Student in an Organized Health Care Education/Training Program
PROC: 079T3ZX Drainage of Bone Marrow, Percutaneous Approach, Diagnostic (ICD-10-PCS; 2024-04-12)
PROC: 30233N1 Transfusion of Nonautologous Red Blood Cells into Peripheral Vein, Percutaneous Approach (ICD-10-PCS; principal; 2024-04-13)
DX: N17.9 Acute kidney failure, unspecified (principal); J69.0 Pneumonitis due to inhalation of food and vomit; C90.00 Multiple myeloma not having achieved remission; E87.1 Hypo-osmolality and hyponatremia; E87.20 Acidosis, unspecified; E87.0 Hyperosmolality and hypernatremia; E83.52 Hypercalcemia; D63.1 Anemia in chronic kidney disease; I12.9 Hypertensive chronic kidney disease with stage 1 through stage 4 chronic kidney disease, or unspecified chronic kidney disease; N18.30 Chronic kidney disease, stage 3 unspecified; Z66 Do not resuscitate; E86.0 Dehydration; D69.6 Thrombocytopenia, unspecified; E87.6 Hypokalemia; E11.22 Type 2 diabetes mellitus with diabetic chronic kidney disease; E03.9 Hypothyroidism, unspecified; N40.0 Benign prostatic hyperplasia without lower urinary tract symptoms; G25.81 Restless legs syndrome; Z99.2 Dependence on renal dialysis; Z79.4 Long term (current) use of insulin; Z79.890 Hormone replacement therapy; Z79.891 Long term (current) use of opiate analgesic; Z79.899 Other long term (current) drug therapy; Z88.8 Allergy status to other drugs, medicaments and biological substances; Z87.442 Personal history of urinary calculi; B95.8 Unspecified staphylococcus as the cause of diseases classified elsewhere
CPT/HCPCS: 36415; 36430; 71045; 76770; 80053; 80069; 81001; 82947; 83735; 84100; 84145; 85014; 85018; 85025; 86022; 86850; 86900; 86901; 86923; 87040; 87077; 93005; 93010; 94760; 94762; 97110; 97161; 97530; 99285-25; A9270; J0456; J0630; J0881; J1815; J2405; J2543; J7030; J7040; J7050; P9016

== ENCOUNTER 2024-04-20 20:36 | Inpatient (IN) | payer OTHER ==
[~2024-04-20] VITALS: Ht 188 cm; Wt 88.1 kg
[~2024-04-20 20:36] MED LIST changes: +B-1100 M2 PO; +B-COMPLEX WITH1 EAC2 PO; +LEVFLO500 PO; -NOVOLOG FL100 UNIT/3; +NOVOLOG FL100 UNIT/3 SC; +ONDA4ODT PO; +PROBIOTIC1 EA13 PO
[2024-04-20 21:42] LABS: Hematocrit 20.1 % (37.0-53.0); Hemoglobin 6.7 g/dL (13.5-17.5); Mean Corpuscular HGB 32.2 pg (26.0-34.0); Mean Corpuscular HGB Conc 33.3 g/dL (31.5-36.5); Mean Corpuscular Volume 97 fL (80-100); Mean Platelet Volume 9.5 fL (9.1-12.4); NRBC ABSOLUTE 0.04 K/mm3 (0.00-0.02); NRBC Auto 0.1 /100 WBC (0.0-0.2); RDW Coefficient Variation 17.6 % (11.7-14.2); RDW Standard Deviation 57.1 fL (35.1-46.3); Red Blood Cell Count 2.08 M/mm3 (4.30-5.90)
[2024-04-20 21:44] LABS: Platelet Count 24 K/mm3 (150-400); White Blood Cell Count 58.03 K/mm3 (4.00-11.30)
[2024-04-20 22:00] LABS: Albumin, Blood 2.6 g/dL (3.4-5.0); Albumin/Globulin Ratio 0.5 (0.8-1.8); Bilirubin, Total 0.5 mg/dL (0.1-1.0); Calcium, Blood 14.4 mg/dL (8.5-10.1); Creatinine, Blood 5.43 mg/dL (0.60-1.20); Globulin, Blood 5.5 g/dL (2.2-4.0); Potassium, Blood 3.9 mmol/L (3.5-5.5); Total Protein, Blood 8.1 g/dL (6.4-8.2)
[2024-04-20 22:08] LABS: BASOPHILS PERCENT MAN 0 % (0-2); EOSINOPHILS ABSOLUTE MAN 0.58 K/mm3 (0.00-0.68); EOSINOPHILS PERCENT MAN 1 % (0-6); LYMPHOCYTES % ATYPICAL MANUAL 1 % (0-0); LYMPHOCYTES ABSOLUTE MAN 53.38 K/mm3 (0.84-5.20); LYMPHOCYTES PERCENT MAN 91 % (21-46); MONOCYTES ABSOLUTE MAN 0.58 K/mm3 (0.16-1.47); MONOCYTES PERCENT MAN 1 % (4-13); NEUTROPHILS ABSOLUTE MAN 3.48 K/mm3 (1.96-9.15); SEG NEUTROPHILS PERCENT MAN 6 % (41-73); TOTAL CELLS COUNTED 100
[2024-04-20 22:37] LABS: Uric Acid, Blood 13.8 mg/dL (3.5-7.2)
[2024-04-20 22:38] LABS: Phosphorus, Blood 5.4 mg/dL (2.5-4.9)
[2024-04-20 22:41] LABS: IMMATURE RETIC FRACTION 20.8 % (2.3-16.0); RETICULOCYTE ABSOLUTE 0.0143 M/mm3 (0.0200-0.1100); RETICULOCYTE COUNT PERCENT 0.68 % (0.50-2.50)
[2024-04-20] MEDS ORDERED: NS 1,000 ML IV SCH (22:45)
[2024-04-21] VITALS (19 sets, daily range): BP systolic 124–161; BP diastolic 49–88
[2024-04-21 00:12] LABS: Source, Urine Clean Catch
[2024-04-21 00:21] LABS: Bilirubin, Urine Neg (Neg); Blood, Urine 4+ (Neg); Glucose Qualitative, Urine Neg (Neg); Ketones, Urine Neg (Neg); Leukocyte Esterase, Urine Neg (Neg); Nitrite, Urine Neg (Neg); Protein, Urine 3+ (Neg); Specific Gravity, Urine 1.015 (1.003-1.022); Urobilinogen, Urine NORM (Normal); pH, Urine 6.5 (5.0-8.0)
[2024-04-21 00:28] LABS: Appearance, Urine Clear (Clear); Color, Urine Pale Yellow (P-Yellow)
[2024-04-21 00:31] LABS: Bacteria Not Seen /hpf; Red Blood Cells, Urine 0-2 /hpf (0-2); Squamous Epithelial Cells Not Seen /hpf (Few); White Blood Cells, Urine 0-2 /hpf (0-5)
[2024-04-21 00:42] LABS: Creatinine, Urine Random 59.8 mg/dL (27.00-270.00)
[2024-04-21] MEDS ORDERED: Acetaminophen 325 MG TABLET PO PRN (01:05)
[2024-04-21] MEDS ORDERED: RASBURICASE IV ONE ×2 (01:10→01:15)
[2024-04-21] MEDS ORDERED: Calcitonin Salmon 200 IU/ML 2ML Vial SC ONE (01:10)
[2024-04-21] MEDS ORDERED: NS IV ONE ×2 (01:10→01:15)
[2024-04-21] MEDS ORDERED: Lactated Ringer's 1,000 ML IV SCH (02:00)
[2024-04-21] MEDS ORDERED: rOPINIRole HCl 0.25 MG Tab PO ONE ×2 (03:00→03:25)
[2024-04-21] MEDS ORDERED: NS 1,000 ML IV SCH ×2 (03:05→05:55)
[2024-04-21] MEDS ORDERED: rOPINIRole HCl 1 MG Tab PO ONE (03:40)
[2024-04-21] MEDS ORDERED: Levothyroxine Sodium 0.1 MG Tab PO SCH (06:00)
--- NOTE | 2024-04-21 06:42 | NUR ---
DOMITILA IS A&O X4. NEURO INTACT. CARDAIC PATIENT HAS BEEN NSR-ST. SBP HAS BEEN 120-130S. RESP PATIENT IS ON RA. PATIENT IS VODING USING THE URINAL. NO BM OVERNIGHT. PLAN TO HAVE SURGERY CONSULT FOR A PERMCATH.
[2024-04-21 06:44] LABS: Hemoglobin 7.5 g/dL (13.5-17.5); Mean Corpuscular HGB 31.5 pg (26.0-34.0); Mean Corpuscular HGB Conc 34.1 g/dL (31.5-36.5); NRBC ABSOLUTE 0.04 K/mm3 (0.00-0.02); NRBC Auto 0.1 /100 WBC (0.0-0.2); RDW Coefficient Variation 17.6 % (11.7-14.2); RDW Standard Deviation 55.5 fL (35.1-46.3); Red Blood Cell Count 2.38 M/mm3 (4.30-5.90); White Blood Cell Count 47.31 K/mm3 (4.00-11.30)
[2024-04-21 06:46] LABS: Mean Corpuscular Volume 92 fL (80-100)
[2024-04-21 06:48] LABS: Platelet Count 18 K/mm3 (150-400)
[2024-04-21 06:54] LABS: International Normalized Ratio 1.08; Prothrombin Time Results 11.5 Sec (9.7-11.5)
[2024-04-21 07:10] LABS: Albumin, Blood 2.6 g/dL (3.4-5.0); Anion Gap 11 mmol/L (3-11); Blood Urea Nitrogen 55 mg/dL (8-24); CO2, Blood 22 mmol/L (21-32); Calcium, Blood 13.1 mg/dL (8.5-10.1); Chloride, Blood 111 mmol/L (98-108); Glomerular Filtration Rate 12 (60-); Glucose, Blood 161 mg/dL (70-99); Phosphorus, Blood 4.6 mg/dL (2.5-4.9); Potassium, Blood 3.3 mmol/L (3.5-5.5); Sodium, Blood 141 mmol/L (136-145)
[2024-04-21] MEDS ORDERED: Insulin Regular 100 UNIT/ML 10ML Vial SC SCH (07:30)
[2024-04-21 07:56] LABS: BAND PERCENT MAN 1 % (0-8); BASOPHILS PERCENT MAN 0 % (0-2); EOSINOPHILS ABSOLUTE MAN 0.94 K/mm3 (0.00-0.68); EOSINOPHILS PERCENT MAN 2 % (0-6); LYMPHOCYTES ABSOLUTE MAN 41.63 K/mm3 (0.84-5.20); LYMPHOCYTES PERCENT MAN 88 % (21-46); MONOCYTES PERCENT MAN 0 % (4-13); NEUTROPHILS ABSOLUTE MAN 4.73 K/mm3 (1.96-9.15); SEG NEUTROPHILS PERCENT MAN 9 % (41-73); TOTAL CELLS COUNTED 100
[2024-04-21] MEDS ORDERED: Sevelamer Carbonate 800 MG Tab PO SCH (08:30)
[2024-04-21] MEDS ORDERED: Vitamin B Cmplx/Vit C/Folic Ac 1 Tab PO SCH (09:00)
[2024-04-21] MEDS ORDERED: Lactobacil 2-S.Thermo-Bifido 1 1 Cap PO SCH (09:00)
[2024-04-21] MEDS ORDERED: Hydrocortisone 1% Cream 30 gm TOP PRN (09:45)
[2024-04-21] MEDS ORDERED: BIOTENE SALIVA STIMULANT 44.3 ML BOTTLE MM SCH (09:45)
[2024-04-21] MEDS ORDERED: Loratadine 10 MG Tab PO PRN (09:55)
[2024-04-21 09:59] LABS: Albumin, Blood 2.4 g/dL (3.4-5.0); Anion Gap 12 mmol/L (3-11); Blood Urea Nitrogen 53 mg/dL (8-24); CO2, Blood 21 mmol/L (21-32); Calcium, Blood 12.7 mg/dL (8.5-10.1); Chloride, Blood 110 mmol/L (98-108); Creatinine, Blood 4.84 mg/dL (0.60-1.20); Glomerular Filtration Rate 12 (60-); Glucose, Blood 188 mg/dL (70-99); Phosphorus, Blood 4.1 mg/dL (2.5-4.9); Potassium, Blood 3.4 mmol/L (3.5-5.5); Sodium, Blood 140 mmol/L (136-145)
[2024-04-21] MEDS ORDERED: AmLODIPine Besylate 5 MG Tab PO SCH (10:00)
--- NOTE | 2024-04-21 10:49 | NUR ---
Pt transferred to medical floor room 303 at approximately 1020. Pt alert and oriented at time of transfer, no acute needs. All personal belongings sent upstairs with patient. Report given to RN assuming care.
[2024-04-21] MEDS ORDERED: Ondansetron 4 MG SoluTab MM PRN (10:55)
[2024-04-21] MEDS ORDERED: Calcitonin Salmon 200 IU/ML 2ML Vial SC SCH (11:00)
--- NOTE | 2024-04-21 11:44 | NUR ---
RN NOTE MR HOLBROOK WAS TRANSFERED FROM ICU TO MEDICAL FLOOR AT 1025HRS. RED RASH ACROSS TORSO. HYDROCORTISONE CREAM APPLIED. C/O DRY MOUTH AND GIVEN ORAL SPRAY WITH SOME RELIEF. STOOD TO URINATE, UNSTEADY AT SIDE OF BED, RN AT HIS SIDE. DR PEARSON CALLED WITH LAB RESULTS, STAT LIVER PANEL AND STAT URIC ACID ORDERED, READ BACK DONE AND ORDER ENTERED INTO [facility].
[2024-04-21 12:48] LABS: Albumin, Blood 2.4 g/dL (3.4-5.0); Albumin/Globulin Ratio 0.5 (0.8-1.8); Bilirubin, Direct 0.2 mg/dL (0.0-0.3); Bilirubin, Indirect 0.4 mg/dL (0.1-0.7); Bilirubin, Total 0.6 mg/dL (0.1-1.0); Globulin, Blood 4.9 g/dL (2.2-4.0); Total Protein, Blood 7.3 g/dL (6.4-8.2); Uric Acid, Blood 13.5 mg/dL (3.5-7.2)
--- NOTE | 2024-04-21 12:58 | NUR ---
MD CALL DR PEARSON NOTIFIED OF STAT LAB RESULTS. TELEPHONE ORDER FOR ALLOPURINOL 100MG PO QD. READ BACK DONE AND ORDER ENTERED INTO [facility].
--- NOTE | 2024-04-21 14:28 | NUR ---
MD CALL MR YUSEF REQUESTED REPINEROL FOR RESTLESS LEG. DR BAKER CALLED AND NOTIFIED. TELEPHONE ORDER TO GIVE DOSE NOW. READ BACK DONE AND ORDER ENTERED INTO [facility].
[2024-04-21] MEDS ORDERED: rOPINIRole HCl 0.25 MG Tab PO SCH ×2 (14:30→21:00)
[2024-04-21] MEDS ORDERED: Darbepoetin Alfa In Albumn Sol 40 MCG/0.4 ML SC ONE (16:00)
[2024-04-21] MEDS ORDERED: BuPROPion HCl SR 100 MG TabCR PO SCH (17:00)
--- NOTE | 2024-04-21 17:28 | NUR ---
DR. SILVER CALLED AND REQUESTED PT BE STARTED ON A TOTAL OF DEXAMETHASONE 40 MG PO. GIVE DEXAMETHASONE 20 MG PO NOW AND [address] BAKER NOTIFIED OF DR. SILVER'S REQUEST.
--- NOTE | 2024-04-21 17:52 | NUR ---
RN NOTE DR OROZCO CALLED AND CHANGED DEXAMETHASONE FROM PRIOR ORDER TO 40MG PO X 1 THIS EVENING. READ BACK DONE AND ORDER ENTERED INTO [facility].
[2024-04-21] MEDS ORDERED: dexAMETHasone 4 MG TAB PO ONE (17:55)
[2024-04-21] MEDS ORDERED: dexAMETHasone 4 MG TAB PO SCH (18:00)
--- NOTE | 2024-04-21 18:19 | NUR ---
SHIFT SUMMARY MR HOLBROOK C/O GENERALLY NOT FEELING WELL. LOW ENERGY. HE WAS UNSTEADY STANDING AT BEDSIDE TO URINATE BUT DID WELL WALKING TO THE BATHROOM WITH GAITBELT AND WALKER. ON TELEMETRY IN SR, NO CALLS FROM SOCIAL SERVICE COORDINATOR. POOR APPETITE. HE HASN'T WANTED TO SIT UP IN THE CHAIR, WANTING TO STAY IN BED. DRY MOUTH RESOLVING AFTER USING MOISTURISING SPRAY FREQUENTLY. RASH ACROSS TORSO IS NO LONGER ITCHY AFTER HYDROCORTISONE CREAM APPLICATION X1. PLAN FOR NPO AFTER MN FOR PERMACATH PLACEMENT 04/22/24. BED LOW, CALL LIGHT IN REACH, BED ALARM ON.
[2024-04-21] MEDS ORDERED: Famotidine 20 MG Tab PO SCH (21:00)
[2024-04-21] MEDS ORDERED: TraZODone HCl 50 MG Tab PO SCH (21:00)
[2024-04-21] MEDS ORDERED: Zolpidem Tartrate 5 MG Tab PO SCH (21:00)
[2024-04-21] MEDS ORDERED: Insulin Glargine-Yfgn 100 Unit/mL 3 ML SYR SC SCH (21:00)
[2024-04-21] MEDS ORDERED: Tamsulosin HCl 0.4 MG Cap PO SCH (21:00)
[2024-04-22] VITALS (28 sets, daily range): BP systolic 95–147; BP diastolic 46–81
[2024-04-22] MEDS ORDERED: Polyethylene Glycol 3350 17 gm PO ONE (02:35)
--- NOTE | 2024-04-22 04:01 | NUR ---
PREFORMING MACHINE OPERATOR SUMMARY BP ELEVATED AND PULSE MORE RAPID, OTHERWISE VSS. ALERT AND ORIENTED. PLEASANT AFFECT AND COOPERATIVE WITH CARE. UP TO BEDSIDE WITH ASSIST TO VOID. ABLE TO REPOSITION SELF IN BED WITHOUT ASSIST FOR COMFORT AND SKIN MAINTENANCE. REQUESTED AND RECEIVED STOOL SOFTENER (AFTER MD ORDERED IT). MED TELE SINUS TACH. CONT PULSE OX - SATS IN THE 90'S. HAS BEEN RESTING WITH FEW INTERRUPTIONS. CALL LIGHT IN REACH, RAILS UP X 2, AND BED IN LOW POSITION FOR SAFETY. WILL CONTINUE TO MONITOR
--- NOTE | 2024-04-22 04:42 | NUR ---
NPO FOR PLANNED PERMACATH PLACEMENT TODAY.
[2024-04-22 04:53] LABS: Hematocrit 22.8 % (37.0-53.0); Hemoglobin 7.6 g/dL (13.5-17.5)
[2024-04-22 05:20] LABS: Albumin, Blood 2.7 g/dL (3.4-5.0); Anion Gap 15 mmol/L (3-11); Blood Urea Nitrogen 57 mg/dL (8-24); Bun/Creatinine Ratio 12.4 (12.0-20.0); CO2, Blood 19 mmol/L (21-32); Calcium, Blood 11.9 mg/dL (8.5-10.1); Chloride, Blood 108 mmol/L (98-108); Glomerular Filtration Rate 13 (60-); Glucose, Blood 314 mg/dL (70-99); Magnesium, Blood 2.8 mg/dL (1.6-2.4); Phosphorus, Blood 6.1 mg/dL (2.5-4.9); Potassium, Blood 4.3 mmol/L (3.5-5.5); Sodium, Blood 138 mmol/L (136-145)
[2024-04-22] MEDS ORDERED: Vitamin B Cmplx/Vit C/Folic Ac 1 Tab PO SCH (06:00)
[2024-04-22] MEDS ORDERED: Famotidine 20 MG Tab PO SCH (06:00)
[2024-04-22] MEDS ORDERED: CeFAZolin Sodium 2,000 MG in NS 100 ML IV SCH (07:30)
[2024-04-22] MEDS ORDERED: Polyethylene Glycol 3350 17 gm PO SCH (09:00)
[2024-04-22] MEDS ORDERED: Allopurinol 100 MG Tab PO SCH (09:00)
[2024-04-22] MEDS ORDERED: Fluticasone 0.05% Nasal Spray SCH (09:00)
[2024-04-22] MEDS ORDERED: Docosahexanoic Acid/EPA 1,000 MG CAP PO SCH (09:00)
[2024-04-22] MEDS ORDERED: Thiamine HCl 100 MG Tab PO SCH (09:00)
--- NOTE | 2024-04-22 10:51 | NUR ---
pt laying in bed awake a/ox3-4, pleasant and cooperative with care, follows commands well, denies pain, complaining about being thirsty and wants ice chips, after speaking with day surgery gave him a half a cup, lungs are clear t/o, resp even and unlabored, no cough noted, hrr, no edema noted, ppp+2, cap refill <3 sec, vs stable, afebrile, piv to lh site is clear and patent, btx4, abd flat soft nontender, voids without diff, skin c/w/d, maew, daisy, call light in reach.
[2024-04-22] MEDS ORDERED: dexAMETHasone 4 MG TAB PO ONE ×2 (11:15→18:15)
[2024-04-22] MEDS ORDERED: propofoL 20 ML IV ONE (12:09)
[2024-04-22] MEDS ORDERED: FentaNYL Citrate 50 MCG/ML 2 ML Injection ONE (12:10)
[2024-04-22] MEDS ORDERED: NS 1,000 ML IV SCH (12:15)
[2024-04-22] MEDS ORDERED: Lidocaine HCL 1% 10 ML MDV ONE (12:36)
[2024-04-22] MEDS ORDERED: Heparin Sodium 5000 Units/ML 1ML MDV ONE (12:37)
[2024-04-22] MEDS ORDERED: Bupivacaine 0.5% HCl 5 MG/ML 30MLVIAL ONE (12:37)
[2024-04-22] MEDS ORDERED: Midazolam HCl 1MG / ML 2ML Vial ONE (12:49)
[2024-04-22] MEDS ORDERED: Midazolam HCl 1MG / ML 2ML Vial IV SCH (12:50)
[2024-04-22] MEDS ORDERED: FentaNYL Citrate 50 MCG/ML 2 ML Injection IV PRN ×3 (13:00→13:05)
[2024-04-22] MEDS ORDERED: Ondansetron HCl 2 MG / ML 2ML Vial IV PRN (13:05)
[2024-04-22] MEDS ORDERED: Phenylephrine HCl 100 MCG/ML-NS 10MLSYR (1MG/10ML) ONE (13:10)
[2024-04-22] MEDS ORDERED: Ondansetron HCl 2 MG / ML 2ML Vial ONE (13:12)
[2024-04-22] MEDS ORDERED: Dexamethasone Sod Phos 10 MG/ML 1ML VIAL ONE (13:12)
--- NOTE | 2024-04-22 13:15 | NUR ---
FLUSHED BILATERAL IV SITES R/L HAND/PATENT.
[2024-04-22] MEDS ORDERED: Anticoagulant Sod Citrate Soln 3 ML SYR INJ PRN (13:45)
--- NOTE | 2024-04-22 15:56 | NUR ---
CALL FROM LAKISHA IN [facility] STATING PATIENT IS THERE WITH NEW PERMACATH AND THEY HAVE BEEN UNABLE TO START DIALYSIS HE HAS NOT STOPPED BLEEDING. PLATELETS AND HGB LOW THIS AM AND NEEDED TO RECEIVE BLOOD. CALL TO DR MORALES WHO STATED HE WILL ORDER SOME PLATELETS TO BE ADMINISTERED WITH DIALYSIS. PRIMARY RN WILL NEED TO TAKE TO DIALYSIS TO VERIFY AND START ADMINISTRATION ONCE ARRIVED.
[2024-04-22 19:20] LABS: Hematocrit 19.5 % (37.0-53.0); Hemoglobin 6.8 g/dL (13.5-17.5); Mean Corpuscular HGB 31.5 pg (26.0-34.0); Mean Corpuscular HGB Conc 34.9 g/dL (31.5-36.5); Mean Corpuscular Volume 90 fL (80-100); Mean Platelet Volume 9.4 fL (9.1-12.4); NRBC ABSOLUTE 0.03 K/mm3 (0.00-0.02); RDW Standard Deviation 55.1 fL (35.1-46.3); Red Blood Cell Count 2.16 M/mm3 (4.30-5.90)
[2024-04-22 19:24] LABS: Platelet Count 50 K/mm3 (150-400)
--- NOTE | 2024-04-22 19:24 | NUR ---
pt returned from Dialysis with perma cath actively bleeding, pressure has been held the whole time of dialysis, is still actively bleeding, charge nurse and multiple nurses in to help stop the bleeding, charge nurse from PCU in to redress breeding areas, call to Dr. Teran, he ordered a cbc, and states there is no surgical intervention that can help stop the bleeding, charge nurse said she was going to call hospitalist to come see pt. pt b/p is stable, and he is tolerating. report to keysmith nurse. call light in reach, staff with pt.
[2024-04-22 19:25] LABS: White Blood Cell Count 66.82 K/mm3 (4.00-11.30)
[2024-04-22] MEDS ORDERED: Tranexamic Acid 100 ML IV ONE (19:50)
[2024-04-22] MEDS ORDERED: DESMOPRESSIN ACETATE IV ONE (20:00)
[2024-04-22] MEDS ORDERED: NS IV ONE (20:00)
[2024-04-22 20:12] LABS: BASOPHILS PERCENT MAN 0 % (0-2); EOSINOPHILS PERCENT MAN 0 % (0-6); LYMPHOCYTES ABSOLUTE MAN 62.81 K/mm3 (0.84-5.20); LYMPHOCYTES PERCENT MAN 94 % (21-46); MONOCYTES ABSOLUTE MAN 0.66 K/mm3 (0.16-1.47); MONOCYTES PERCENT MAN 1 % (4-13); NEUTROPHILS ABSOLUTE MAN 3.34 K/mm3 (1.96-9.15); SEG NEUTROPHILS PERCENT MAN 5 % (41-73); TOTAL CELLS COUNTED 100
[2024-04-22 22:00] LABS: GLUC-6-PHOSPHATE DEHYDROGENASE 11.3 U/g Hb (9.9-16.6)
[2024-04-23] VITALS (8 sets, daily range): BP systolic 110–149; BP diastolic 60–85
[2024-04-23 05:26] LABS: Hematocrit 19.8 % (37.0-53.0); Hemoglobin 6.5 g/dL (13.5-17.5)
[2024-04-23 05:39] LABS: Magnesium, Blood 2.1 mg/dL (1.6-2.4)
[2024-04-23 05:40] LABS: Albumin, Blood 2.4 g/dL (3.4-5.0); Anion Gap 12 mmol/L (3-11); Blood Urea Nitrogen 37 mg/dL (8-24); Bun/Creatinine Ratio 12.7 (12.0-20.0); CO2, Blood 24 mmol/L (21-32); Chloride, Blood 104 mmol/L (98-108); Creatinine, Blood 2.91 mg/dL (0.60-1.20); Glomerular Filtration Rate 22 (60-); Glucose, Blood 211 mg/dL (70-99); Potassium, Blood 3.2 mmol/L (3.5-5.5); Sodium, Blood 137 mmol/L (136-145)
[2024-04-23 05:41] LABS: Calcium, Blood 9.7 mg/dL (8.5-10.1)
--- NOTE | 2024-04-23 06:02 | NUR ---
SHIFT SUMMARY: PATIENT FULLY ORIENTED, COOPERATIVE, PALE. PATIENT HAD BLEEDING PERMACATH AT BEGINNING OF SHIFT. ONE UNIT PRBC, ONE UNIT FFP, AND ONE UNIT PLATELETS ADMINISTERED THROUGH NIGHT. PATIENT HAD NO SLEEP.
[2024-04-23] MEDS ORDERED: Potassium Chloride 20 MEQ TabCR PO ONE (06:35)
[2024-04-23 16:32] LABS: HEPATITIS A ANTIBODY, IGM Negative (Negative); HEPATITIS B CORE ANTIBODY, IGM Negative (Negative); HEPATITIS B SURFACE ANTIGEN Negative (Negative); HEPATITIS C AB CIA INTERP Negative (Negative); HEPATITIS C ANTIBODY CIA INDEX 0.12 IV
--- NOTE | 2024-04-23 17:51 | NUR ---
PT REPORT RECEIVED VERIFIED A/OX4 PLEASENT AND IN STABLE CONDITION. MINIMAL COMPLAINT OF PAIN TO DRESSING SITE ON NECK. DIALYSIS CATH DRESSING DRY AND INTACT WITH BLOOD SOAKED GAUZE. WITH REFRAIN FROM CHANGING SINCE IT WAS VERY DIFFICULT TO STOP BLEEDING NIGHT BEFORE, CURRENTLY PLATELETS ARE LOW AND WILL NOT HAVE BLOOD UNTIL DIALYSIS TOMORROW. REST OF ASSCESSMENT IS NEGATIVE AND PT MAKES NEEDS KNOW. WILL CONT TO MONITOR
[2024-04-24] VITALS (16 sets, daily range): BP systolic 102–142; BP diastolic 51–77
--- NOTE | 2024-04-24 00:54 | NUR ---
04/23/242006 PT LYING IN BED, REPORTS PAIN AT STITCHING CT SITE, GAVE TYLENOL, WILL EVAL FOR EFFECT. CT TO RCW, SITES X 2 INTACT, DRESSING OVER HD CATH W/20% DRAINAGE. PT REPORTS OCCASIONAL SOB THAT INCREASES WITH EXERTION. ON 2L NC AT 93%. BS WAS 142. NO OTHER APPARENT SIGNS OF DISTRESS. CALL LIGHT IS IN REACH.
--- NOTE | 2024-04-24 02:42 | NUR ---
04/23/24 2330 PT HAD SOME SPILLING OF URINE WHILE USING HIS URINAL. GOT PT CLEANED UP AND BED LINENS AND GOWN CHANGED. PT TOLERALED WELL. NO APPARENT SIGNS OF DISTRESS. PT DENIES NEED FOR ANYTHING ELSE AT THIS TIME. CALL LIGHT IS IN REACH.
--- NOTE | 2024-04-24 04:13 | NUR ---
PT APPEARS TO BE SLEEPING AND IN NO DISTRESS WHEN THIS RN ENTERS ROOM.
--- NOTE | 2024-04-24 04:58 | NUR ---
AAO X 4, REPORTS OCCASIONAL SOB THAT INCREASES WITH EXERTION, ON 2L NX AT 93%. BS 142. NEWER HD CATH TO R CW. 20% SAT ON DRESSING. PT REPORTED PAIN AT HD STITCHING SITE, GOT TYLENOL X 2.
[2024-04-24 05:26] LABS: Hematocrit 19.1 % (37.0-53.0); Hemoglobin 6.4 g/dL (13.5-17.5)
[2024-04-24 05:53] LABS: Magnesium, Blood 2.4 mg/dL (1.6-2.4)
[2024-04-24 05:54] LABS: Albumin, Blood 2.3 g/dL (3.4-5.0); Anion Gap 10 mmol/L (3-11); Blood Urea Nitrogen 42 mg/dL (8-24); Bun/Creatinine Ratio 10.5 (12.0-20.0); CO2, Blood 28 mmol/L (21-32); Calcium, Blood 10.6 mg/dL (8.5-10.1); Chloride, Blood 105 mmol/L (98-108); Creatinine, Blood 3.99 mg/dL (0.60-1.20); Glomerular Filtration Rate 15 (60-); Glucose, Blood 103 mg/dL (70-99); Phosphorus, Blood 3.6 mg/dL (2.5-4.9); Potassium, Blood 3.2 mmol/L (3.5-5.5); Sodium, Blood 140 mmol/L (136-145)
--- NOTE | 2024-04-24 06:01 | NUR ---
THIS RN ENTERS PT ROOM. PT IS SNORING AND APPEARS TO BE SLEEPING AT THIS TIME. THE PT DOES NOT APPEAR TO BE IN ANY DISTRESS. NO CHANGES OF NOTE.
--- NOTE | 2024-04-24 06:23 | NUR ---
PT'S HGB WAS 6.4, SPOKE WITH DR MACIEL, GOT 1 UNIT OF PRBC'S ORDERED.
[2024-04-24] MEDS ORDERED: Potassium Chloride 10 Meq Tablet SA PO ONE ×2 (06:45→08:50)
[2024-04-24] MEDS ORDERED: Anticoagulant Sod Citrate Soln 3 ML SYR INJ PRN (07:40)
[2024-04-24] MEDS ORDERED: Polyethylene Glycol 3350 17 gm PO SCH (09:00)
[2024-04-24 09:19] LABS: Hematocrit 20.4 % (37.0-53.0); Hemoglobin 6.8 g/dL (13.5-17.5); Mean Corpuscular HGB 30.4 pg (26.0-34.0); Mean Corpuscular HGB Conc 33.3 g/dL (31.5-36.5); Mean Corpuscular Volume 91 fL (80-100); Mean Platelet Volume 10.4 fL (9.1-12.4); NRBC ABSOLUTE 0.07 K/mm3 (0.00-0.02); NRBC Auto 0.2 /100 WBC (0.0-0.2); RDW Coefficient Variation 19.4 % (11.7-14.2); RDW Standard Deviation 61.3 fL (35.1-46.3); Red Blood Cell Count 2.24 M/mm3 (4.30-5.90); White Blood Cell Count 37.87 K/mm3 (4.00-11.30)
[2024-04-24 09:28] LABS: Platelet Count 37 K/mm3 (150-400)
--- NOTE | 2024-04-24 09:35 | NUR ---
DR BAKER ORDERS AT BEDSIDE AT 0910 TO SEND TO DIALYSIS IF PLATELET THIS AM IS MORE THAN 10, IF LESS THAN 10 WILL NEED PLATELT TRANSFUSION FIRST. CBC STAT ORDERED. RESULT CAME BACK 37, DIALYSIS NURSE NOTIFIED SENDING HIM DOWN NOW AT 0935. BLOOD BANK SLIP VERIFIED AND SENT TO BLOOD BANK, SHARON NOTIFIED TO SEND BLOOD TO DIALYSIS AND NOTIFY DIALYISIS NURSE WHEN SENT. THIS NURSE NOTIFIED DIALYSIS NURSE ALSO OF NEED FOR PRBC DURING DIALYSIS.
--- NOTE | 2024-04-24 19:21 | NUR ---
SHIFT SUMMARY PATIENT HAD 1 UNIT PRBC DURING DIALYSIS TODAY. HE TOLERATED WELL WITH SOME SLEEPINESS BUT STILL EATING AND DRINKING WELL. HE IS UP AD ALEXANDRU IN ROOM AND ABLE TO MAKE NEEDS KNOWN.
--- NOTE | 2024-04-25 01:53 | NUR ---
CALL LG WENT OFF, UPON ARRIVAL IN ROOM, NOTED LOOD ON FLOOR AND PT TRYING TO USE URINAL. NOTED PT HAD PULLED OUT IV. PRESSURE DRESSING APPLIED. ROOM CLEANED UP. PT VOICED TIRED, ASSISTED BACK TO BED. CALL [facility] IN REACH. WILL MONITOR
[2024-04-25 02:31] VITALS: BP 111/70
--- NOTE | 2024-04-25 03:35 | NUR ---
SUPERVISOR DRYING SUMMARY VSS. COOPERATIVE WITH CARE. ABLE TO REPOSITION SELF IN BED WITHOUT ASSIST, BUT REQUESTS ASSIST WHEN STANDING TO UE URINAL. UESD CALL LIGHT DURING THE SHIFT, NOTED PULLED OUT IV ON LEFT HAND AND BLOOD POOLING ON FLOOR. HAND BANDAGED, BED AND FLOOR CLEANED. PT CLEANED UP. ASSISTED BACK TO BED. NEW IV PLACED IN RIGHT HAND. HOB ELEVATED FOR COMFORT. HAS BEEN RESTING QUIETLY WIH FEW INTERRUTPIONS SINCE. NO NOTED S/S ACUTE DISTRESS. AWAITING H/H THIS AM. CALL LIGHT IN REACH. RAILS UP X 2 AND BED IN LOW POSITION FOR SAFETY. WILL CONTINUE TO MONITOR
[2024-04-25 05:16] LABS: Hematocrit 21.8 % (37.0-53.0); Hemoglobin 7.2 g/dL (13.5-17.5); Mean Corpuscular Volume 88 fL (80-100); Mean Platelet Volume 10.5 fL (9.1-12.4); NRBC ABSOLUTE 0.03 K/mm3 (0.00-0.02); NRBC Auto 0.1 /100 WBC (0.0-0.2); RDW Coefficient Variation 21.2 % (11.7-14.2); Red Blood Cell Count 2.48 M/mm3 (4.30-5.90); White Blood Cell Count 33.08 K/mm3 (4.00-11.30)
[2024-04-25 05:27] LABS: Platelet Count 27 K/mm3 (150-400)
[2024-04-25 05:44] LABS: Albumin, Blood 2.5 g/dL (3.4-5.0); Anion Gap 9 mmol/L (3-11); Blood Urea Nitrogen 28 mg/dL (8-24); Bun/Creatinine Ratio 8.1 (12.0-20.0); CO2, Blood 29 mmol/L (21-32); Calcium, Blood 10.9 mg/dL (8.5-10.1); Chloride, Blood 102 mmol/L (98-108); Creatinine, Blood 3.44 mg/dL (0.60-1.20); Glomerular Filtration Rate 18 (60-); Glucose, Blood 121 mg/dL (70-99); Magnesium, Blood 2.2 mg/dL (1.6-2.4); Potassium, Blood 3.3 mmol/L (3.5-5.5); Sodium, Blood 137 mmol/L (136-145)
[2024-04-25] MEDS ORDERED: Potassium Chloride 20 MEQ TabCR PO ONE (05:55)
[2024-04-25 07:40] VITALS: BP 103/64
[2024-04-25] MEDS ORDERED: Losartan Potassium 25 MG Tab PO SCH (09:00)
[2024-04-25] MEDS ORDERED: rOPINIRole HCl 0.25 MG Tab PO SCH (13:00)
[2024-04-25 14:48] VITALS: BP 107/57
[2024-04-25 17:18] LABS: HEPATITIS B SURFACE ANTIBODY 6.42 IU/L
[2024-04-25 19:10] VITALS: BP 124/73
[2024-04-26] VITALS (17 sets, daily range): BP systolic 90–138; BP diastolic 51–73
--- NOTE | 2024-04-26 03:50 | NUR ---
SHIFT SUMMARY ADMITTED FOR EVON. DNR CODE. NEW PERMACATH PLACED ON 04/22/24 FOR DIALYSIS. MONITORING LABS. HX OF PLASMA CELL MYELOMA. DR. SILVER IS ONCOLOGY CONSULT. ON RA, INDEPENDENT, RENAL DIET. ACHS CBG'S - LOW SS. DR. PEARSON IS RENAL CONSULT. HE DENIES PAIN OR NAUSEA THIS SHIFT. NO NEW CONCERNS.
[2024-04-26 04:55] LABS: Hematocrit 21.6 % (37.0-53.0); Hemoglobin 7.3 g/dL (13.5-17.5)
[2024-04-26 05:08] LABS: Albumin, Blood 2.4 g/dL (3.4-5.0); Anion Gap 10 mmol/L (3-11); Blood Urea Nitrogen 34 mg/dL (8-24); Bun/Creatinine Ratio 7.7 (12.0-20.0); CO2, Blood 27 mmol/L (21-32); Calcium, Blood 11.4 mg/dL (8.5-10.1); Chloride, Blood 103 mmol/L (98-108); Creatinine, Blood 4.42 mg/dL (0.60-1.20); Glomerular Filtration Rate 13 (60-); Glucose, Blood 141 mg/dL (70-99); Magnesium, Blood 2.4 mg/dL (1.6-2.4); Phosphorus, Blood 3.7 mg/dL (2.5-4.9); Potassium, Blood 3.3 mmol/L (3.5-5.5); Sodium, Blood 137 mmol/L (136-145)
[2024-04-26] MEDS ORDERED: Anticoagulant Sod Citrate Soln 3 ML SYR INJ PRN (07:30)
[2024-04-26] MEDS ORDERED: Potassium Chloride 20 MEQ/15 ML UDC PO SCH (08:00)
[2024-04-26 08:16] LABS: Hematocrit 21.9 % (37.0-53.0); Hemoglobin 7.4 g/dL (13.5-17.5); Mean Corpuscular HGB 29.5 pg (26.0-34.0); Mean Corpuscular HGB Conc 33.8 g/dL (31.5-36.5); Mean Corpuscular Volume 87 fL (80-100); Mean Platelet Volume 9.8 fL (9.1-12.4); NRBC ABSOLUTE 0.02 K/mm3 (0.00-0.02); NRBC Auto 0.1 /100 WBC (0.0-0.2); RDW Coefficient Variation 20.6 % (11.7-14.2); RDW Standard Deviation 63.2 fL (35.1-46.3); Red Blood Cell Count 2.51 M/mm3 (4.30-5.90); White Blood Cell Count 29.54 K/mm3 (4.00-11.30)
[2024-04-26 08:31] LABS: Platelet Count 23 K/mm3 (150-400)
--- NOTE | 2024-04-26 16:01 | NUR ---
NOTE: NOTIFIED PROVIDER OF PT'S EVENING BP SYSTOLIC OF 90. DR. BAKER SAID HE WOULD DISCONTINUE THE LOSARTAN ORDERED. NO OTHER NEW ORDERS AT THIS TIME.
[2024-04-26] MEDS ORDERED: rOPINIRole HCl 0.25 MG Tab PO ONE (17:50)
--- NOTE | 2024-04-26 18:04 | NUR ---
SHIFT SUMMARY PT AOX4, INDEPENDENT WITH THE FWW. NO ACUTE EVENTS THIS SHIFT. DIALYSIS WAS COMPLETED TODAY, PT TOLERATED IT WELL. SEE OTHER NOTES ABOUT BP. MEDICATED PER THE EMAR FOR PAIN AND RESTLESS LEGS. CALL LIGHT WITHIN REACH, BED LOCKED AND IN THE LOWEST POSITION. WILL REPORT TO ONCOMING NURSE.
[2024-04-27] VITALS (7 sets, daily range): BP systolic 106–136; BP diastolic 50–71
--- NOTE | 2024-04-27 04:47 | NUR ---
NOC SHIFT SUMMARY PT HAS HAD NO COMPLAINTS OVERNIGHT. APPEARED TO BE SLEEPING DURING MOST ROUNDS. NEW CATHETER SITE REMAINS DRY. FALL PRECAUTIONS IN PLACE. CALL LIGHT WITHIN REACH.
[2024-04-27 05:22] LABS: Hematocrit 21.3 % (37.0-53.0); Hemoglobin 7.2 g/dL (13.5-17.5); Mean Corpuscular HGB 30.3 pg (26.0-34.0); Mean Corpuscular HGB Conc 33.8 g/dL (31.5-36.5); Mean Corpuscular Volume 90 fL (80-100); Mean Platelet Volume 9.1 fL (9.1-12.4); RDW Coefficient Variation 20.5 % (11.7-14.2); RDW Standard Deviation 64.3 fL (35.1-46.3); Red Blood Cell Count 2.38 M/mm3 (4.30-5.90); White Blood Cell Count 20.32 K/mm3 (4.00-11.30)
[2024-04-27 05:29] LABS: Platelet Count 16 K/mm3 (150-400)
[2024-04-27 05:43] LABS: Albumin, Blood 2.3 g/dL (3.4-5.0); Anion Gap 8 mmol/L (3-11); Blood Urea Nitrogen 23 mg/dL (8-24); Bun/Creatinine Ratio 5.8 (12.0-20.0); CO2, Blood 29 mmol/L (21-32); Calcium, Blood 11.1 mg/dL (8.5-10.1); Chloride, Blood 108 mmol/L (98-108); Creatinine, Blood 3.95 mg/dL (0.60-1.20); Glomerular Filtration Rate 15 (60-); Glucose, Blood 125 mg/dL (70-99); Magnesium, Blood 2.4 mg/dL (1.6-2.4); Phosphorus, Blood 2.8 mg/dL (2.5-4.9); Potassium, Blood 3.8 mmol/L (3.5-5.5); Sodium, Blood 141 mmol/L (136-145)
--- NOTE | 2024-04-27 19:43 | NUR ---
SHIFT SUMMARY PT A&OX4. SP02>90% RA. VSS. UP TO BATHROOM TO VOID, FWW. BM THIS SHIFT. PT HAS R CHEST WALL PERMCATH THAT OOZED SLIGHTLY T/O SHIFT. CALL PLACED TO JESSICA NATH IN DIALYSIS. JESSICA TO ROOM X2 TO DAY TO CHANGE DRESSING. PT NOTED TO BE BOOSTING HIMSELF IN BED BY REACHING UP TO ARM RAILS IN BED AND PULLING SELF UP. PT EDUCATED TO CALL STAFF TO BOOST. PERMCATH CONTINUED TO OOZE AFTER SECOND DRESSING CHANGE. CALL PLACED TO MD BAKER. MD BAKER W/ ORDERS FOR 1 UNIT PLATLETS. IF PLATLETS DOES NOT STOP BLEEDING, THEN 1 UNIT FFP, SEE ORDERS. UPON BEDSIDE SHIFT REPORT, CATHETER OOZING MORE SIGNIFICANTLY. GOWN CHANGED. ELECTRIFICATION ADVISER RN TO START PLATLETS. PT C/O OF PERMCATH TENDERNESS THIS SHIFT, MEDICATED W/ TYLENOL PER EMAR. CALL LIGHT IN REACH.
[2024-04-27] MEDS ORDERED: NS 500 ML IV SCH (19:55)
[2024-04-28] VITALS (18 sets, daily range): BP systolic 105–147; BP diastolic 61–78
[2024-04-28 05:24] LABS: Hematocrit 19.7 % (37.0-53.0); Hemoglobin 6.4 g/dL (13.5-17.5); Mean Corpuscular HGB 29.1 pg (26.0-34.0); Mean Corpuscular HGB Conc 32.5 g/dL (31.5-36.5); Mean Corpuscular Volume 90 fL (80-100); Mean Platelet Volume 11.3 fL (9.1-12.4); RDW Standard Deviation 61.9 fL (35.1-46.3); White Blood Cell Count 17.86 K/mm3 (4.00-11.30)
[2024-04-28 05:32] LABS: Platelet Count 23 K/mm3 (150-400)
[2024-04-28 05:50] LABS: Albumin, Blood 2.4 g/dL (3.4-5.0); Anion Gap 12 mmol/L (3-11); Blood Urea Nitrogen 28 mg/dL (8-24); Bun/Creatinine Ratio 5.7 (12.0-20.0); CO2, Blood 25 mmol/L (21-32); Calcium, Blood 11.9 mg/dL (8.5-10.1); Chloride, Blood 107 mmol/L (98-108); Creatinine, Blood 4.88 mg/dL (0.60-1.20); Glomerular Filtration Rate 12 (60-); Glucose, Blood 129 mg/dL (70-99); Phosphorus, Blood 3.6 mg/dL (2.5-4.9); Potassium, Blood 3.5 mmol/L (3.5-5.5); Sodium, Blood 140 mmol/L (136-145)
--- NOTE | 2024-04-28 06:07 | NUR ---
SHIFT SUMMARY: RU CHEST PERMACATH CONTINUED TO BLEED OVERNIGHT, SOAKING AN ABD PAD EVERY TWO HOURS. TRANSFUSED PLATELETS AND FFP, PRESSURE DRESSING APPLIED OVER BROADCAST CORRESPONDENT DRESSING. PT IS NON COMPLIANT WITH STRICT I&O, IS USING TOILET TO VOID. ON ROOM AIR. MAY BENEFIT FROM ADDITION OF SUTURES TO PERMACATH TO HELP STOP THE BLEEDING.
[2024-04-28] MEDS ORDERED: [UNRECOGNIZED DRUG - OTHER] INJ ONE (12:55)
[2024-04-28] MEDS ORDERED: Lidocaine 2%-Epineph 1:200000 20 ML SDV INJ ONE (13:00)
[2024-04-28] MEDS ORDERED: Darbepoetin Alfa In Albumn Sol 40 MCG/0.4 ML SC ONE (16:00)
--- NOTE | 2024-04-28 19:34 | NUR ---
DAY SHIFT SUMMARY PT NOTABLY WITH SOAKED THROUGH DRESSING TO RU CHEST TRIALYSIS CATHETER, VSS. PER REPORT PT HAS HAD CONTINOUS LEAKING. NOTIFIED DR. PATEL AND DR. BAKER VERBALLY OF CONTINUED LEAKING AND MULTIPLE DRESSING CHANGES OVERNIGHT. DR. PATEL TO BEDSIDE AND HEMOSTATIS ACHIEVED, SEE NOTE FOR DETAILS. PT RECEIVED MULTIPLE UNITS OF BLOOD PRODUCTS T/O THE DAY AND TOLERATED WELL. VSS PER PT TREND. GAVE REPORT TO ONCCHRISTIANO RN. PLAN FOR HD TOMORROW AND PER DR. BAKER NO RECHECK TIL AM FOR HGB. GAVE REPORT TO ONCCHRISTIANO RN
[2024-04-29] VITALS (14 sets, daily range): BP systolic 113–132; BP diastolic 47–80
[2024-04-29 04:53] LABS: Hematocrit 21.3 % (37.0-53.0); Mean Corpuscular HGB Conc 32.9 g/dL (31.5-36.5); Mean Corpuscular Volume 88 fL (80-100); Mean Platelet Volume 10.6 fL (9.1-12.4); RDW Coefficient Variation 18.6 % (11.7-14.2); RDW Standard Deviation 57.3 fL (35.1-46.3); Red Blood Cell Count 2.41 M/mm3 (4.30-5.90); White Blood Cell Count 15.37 K/mm3 (4.00-11.30)
[2024-04-29 05:20] LABS: Albumin, Blood 2.7 g/dL (3.4-5.0); Anion Gap 13 mmol/L (3-11); Blood Urea Nitrogen 34 mg/dL (8-24); Bun/Creatinine Ratio 6.2 (12.0-20.0); CO2, Blood 25 mmol/L (21-32); Calcium, Blood 12.7 mg/dL (8.5-10.1); Chloride, Blood 108 mmol/L (98-108); Creatinine, Blood 5.51 mg/dL (0.60-1.20); Glomerular Filtration Rate 10 (60-); Glucose, Blood 112 mg/dL (70-99); Magnesium, Blood 2.7 mg/dL (1.6-2.4); Phosphorus, Blood 4.9 mg/dL (2.5-4.9); Potassium, Blood 3.6 mmol/L (3.5-5.5); Sodium, Blood 142 mmol/L (136-145)
[2024-04-29 05:31] LABS: Platelet Count 26 K/mm3 (150-400)
--- NOTE | 2024-04-29 05:40 | NUR ---
SHIFT SUMMARY: PATIENT TOLERATED ONE UNIT OF PRBC LAST EVENING. WAS UNSTEADY AMBULATING TO THE BATHROOM AFTER TAKING HIS ROUTINE TRAZADONE AND AMBIEN. PATIENT WAS THEN ASSISTED WITH URINAL AT THE BEDSIDE. BED ALARM IS ON FOR SAFETY. PLATELETS ARE CRITICAL AT 26 THIS AM. WAS NOTIFIED.
[2024-04-29] MEDS ORDERED: Anticoagulant Sod Citrate Soln 3 ML SYR INJ PRN (08:05)
--- NOTE | 2024-04-29 11:40 | NUR ---
VERBAL FROM [facility]-1130 ORDER 2.6 MG VELCADE ONCE FOR TOMORROW AT 1400. PHARMACY NOTIFIED.
--- NOTE | 2024-04-29 17:47 | NUR ---
SUMMARY- PT AAOX3. PT IS FORGETFUL ABOUT HIS SITUATION REGARDLESS OF REMINDERS. NO BLEEDING FROM HD CATHETER SITE THIS SHIFT. PT TOLERATED HD WELL TODAY. TYLENOL GIVEN FOR GENERAL PAIN IN DIALYSIS. PT RECEIVED 1 UNIT PRBCS IN DIALYSIS THIS SHIFT. SBA-X1 ASSIST TO THE BATHROOM. PT ON RA. PT IRRITABLE THIS SHIFT AND STATED HE WAS "TIRED OF BEING IN THE HOSPITAL."
--- NOTE | 2024-04-29 18:49 | NUR ---
1820- PT'S HD PERMACATH SITE IN R CHEST IS BLEEDING. KIMMIE DRESSING IS SATURATED. RN HAD ICU TUBE X3 KIMMIE DRESSINGS TO MEDICAL. THIS RN REMOVED OLD DRESSING, HELD PRESSURE AT SITE FOR 5 MINUTES, AND REPLACED NEW KIMMIE DRESSING AND TEGADERM USING STERIAL TECHNIQUE. DR. SAEED CALLED TWICE AND DID NOT ANSWER.
--- NOTE | 2024-04-29 20:12 | NUR ---
Bleeding: Patient is oozing blood from dialysis port. Call is placed to Dr Teran. Message left with answering service.
--- NOTE | 2024-04-29 22:53 | NUR ---
TRANSFER: DR MORALES RETURNED CALL AND INSTRUCTED PRESSURE BE APPLIED JUST ABOVE THE CLAVICAL TO STOP THE BLEEDING AND 1 UNIT OF PLATELETS. THE PRESSURE SLOWED THE BLEEDING BUT DIDN'T STOP IT. THE PATIENT THEN INSISTED HE NEEDED TO GO TO THE BATHROOM FOR A BM. AFTER AMBULATION THE BLEEDING INCREASED. LAWRENCE ZAVALA WAS THEN CALLED AND WAS NOTIFIED THAT CARDIOLOGY PHYSICIAN ASSISTANT IS UNABLE TO MANAGE THE BLEEDING AND TRANSFUSION OF PLATELETS ON THE MEDICAL FLOOR. ORDER WAS OBTAINED TO TRANSFER PATIENT TO PCU FOR CONTINUED PRESSURE AT INCERTION SITE OF CATHETER. REPORT WAS CALLED TO YONATAN STUDENT ASSISTANT.
--- NOTE | 2024-04-30 01:03 | NUR ---
RECEIVED PATIENT FROM FLOOR IN NO DISTRESS. TRANSFERED FOR BLEEDING AT SIDE OF DIALYSIS CATHETER. DRESSING INTACT WITH SMALL AMOUNT OF BLOOD DRAINING OUT FROM UNDER DRESSING. PLATELETS STARTED AND INFUSING WELL, AND BLEEDING SLOWING. AFTER INFUSION OF PLATELETS, KIMMIE DRESSING APPLIED WITHOUT DIFFICULTY. BLOOD NOTICED BUT SLOWING DOWN.
[2024-04-30 04:30] VITALS: BP 125/85
--- NOTE | 2024-04-30 04:31 | NUR ---
DRESSING TO RT. SHOULDER OVER DIALYSIS CATHETER REINFORCED WITH SECOND LAYER OF KIMMIE DRESSING. OOAING HAD STARTED AFTER PATIENT GOT UP TO USE THE BATHROOM.
[2024-04-30 05:00] LABS: Hematocrit 23.3 % (37.0-53.0); Hemoglobin 7.9 g/dL (13.5-17.5)
[2024-04-30 06:02] LABS: Albumin, Blood 2.6 g/dL (3.4-5.0); Anion Gap 11 mmol/L (3-11); Blood Urea Nitrogen 25 mg/dL (8-24); Bun/Creatinine Ratio 5.4 (12.0-20.0); CO2, Blood 27 mmol/L (21-32); Calcium, Blood 11.2 mg/dL (8.5-10.1); Chloride, Blood 103 mmol/L (98-108); Creatinine, Blood 4.67 mg/dL (0.60-1.20); Glomerular Filtration Rate 13 (60-); Glucose, Blood 95 mg/dL (70-99); Magnesium, Blood 2.4 mg/dL (1.6-2.4); Phosphorus, Blood 4.5 mg/dL (2.5-4.9); Potassium, Blood 3.7 mmol/L (3.5-5.5); Sodium, Blood 137 mmol/L (136-145)
[2024-04-30 07:30] VITALS: BP 122/86
[2024-04-30 08:48] LABS: Hematocrit 21.1 % (37.0-53.0); Hemoglobin 7.3 g/dL (13.5-17.5); Mean Corpuscular HGB 30.4 pg (26.0-34.0); Mean Corpuscular HGB Conc 34.6 g/dL (31.5-36.5); Mean Corpuscular Volume 88 fL (80-100); Mean Platelet Volume 10.6 fL (9.1-12.4); RDW Coefficient Variation 17.2 % (11.7-14.2); RDW Standard Deviation 53.9 fL (35.1-46.3); White Blood Cell Count 10.57 K/mm3 (4.00-11.30)
[2024-04-30 08:53] LABS: Platelet Count 25 K/mm3 (150-400)
[2024-04-30 09:35] LABS: BASOPHILS PERCENT MAN 0 % (0-2); EOSINOPHILS PERCENT MAN 0 % (0-6); LYMPHOCYTES ABSOLUTE MAN 8.13 K/mm3 (0.84-5.20); LYMPHOCYTES PERCENT MAN 77 % (21-46); MONOCYTES ABSOLUTE MAN 0.21 K/mm3 (0.16-1.47); MONOCYTES PERCENT MAN 2 % (4-13); PLASMA CELL ABSOLUTE MAN 0.31 K/mm3 (0.00-0.00); PLASMA CELLS PERCENT MAN 3 % (0-0); SEG NEUTROPHILS PERCENT MAN 18 % (41-73); TOTAL CELLS COUNTED 100
[2024-04-30] MEDS ORDERED: rOPINIRole HCl 0.25 MG Tab PO PRN (09:40)
--- NOTE | 2024-04-30 13:18 | NUR ---
ASSUMED CARE OF PT AT 0700 THIS AM. DRESSING TO R UPPER CHEST WALL PERMACATH CHECKED WITH NOC RN DURING BEDSIDE REPORT, NO NEW BLEEDING NOTED AT THIS TIME. DRESSING IS MODERATELY SOAKED WITH WHAT APPEARS TO BE OLD DARK RED BLOOD. NOC RN STATES KIMMIE DRESSING OVERNIGHT STOPPED THE BLEEDING. TEGADERM OVER THE KIMMIE DRESSING IS C/D/I. PT EDUCATED AND ENCOURAGED TO LIMIT THE USE OF HIS RIGHT SHOULDER MUCH POSSIBLE TO DECREASE RISK OF FURTHER BLEEDING. PT WORKED WITH PT TODAY, OOB WALKING WITH GAIT BELT/WALKER. PER CASE MANAGEMENT, PT HAS A CHAIR David BUTLER STARTING MONDAY OF THIS WEEK, DR SAEED MADE AWARE. PT'S FRIEND AT BEDSIDE EXPRESSES CONCERNS FOR PT RETURNING HOME TO LIVE ALONE. SHE STATES PT HAS NO FAMILY/FRIENDS THAT SHE KNOWS OF WHO WOULD BE ABLE TO ASSIST HIM AT HOME. CASE MANAGEMENT MADE AWARE. NO ACUTE CHANGES SO FAR THIS SHIFT. PT IS ABLE TO USE CALL LIGHT TO MAKE NEEDS KNOWN. CALM AND APPROPRIATE WITH CARE. CALL LIGHT IN REACH, BED IN LOWEST, LOCKED POSITION, WILL CONTINUE TO MONITOR.
[2024-04-30 16:46] VITALS: BP 116/70
--- NOTE | 2024-04-30 17:31 | NUR ---
NO ACUTE CHANGES SINCE LAST NOTE. PT HAS HAD NO COMPLAINTS AND PERMACATH TO R CHEST WALL HAS NOT BEEN BLEEDING TODAY. OLD DRESSING REMAINS IN PLACE. DID NOT CHANGE BECAUSE OF CONCERNS OF RE-BLEEDING. WILL PASS ON FOR DAYSHIFT TO HAVE DIALYSIS NURSE CHANGE IT TOMORROW WITH HIS TREATMENT. PT IS HOPEFUL TO BE DISCHARGED IN THE NEXT DAY OR TWO. PT IS ABLE TO MAKE NEEDS KNOWN AND USE CALL LIGHT. BED IN LOWEST, LOCKED POSITION AND CALL LIGHT IN REACH. WILL CONTINUE TO MONITOR AND GIVE NOC RN REPORT AT THE END OF MY SHIFT.
[2024-04-30 20:00] VITALS: BP 118/64
--- NOTE | 2024-04-30 21:25 | NUR ---
ASSUMED CARE OF PATIENT AT 1900 PT IS AWAKE AND ALERT AND ORIENTED, HARD OF HEARING HOWEVER. PT IS ABLE TO MAEW BUT NEEDS A 1 PER SBA WITH AMBULATION TO AND FROM BATHROOM AND SCOOTING IN BED. PT HAS A PERMACATH TO RIGHT UPPER CHEST. IT HAS A DRY DRESSING, INTACT, SPOTS OF DRY BLOOD ON IT. IT IS BRUISE GREEN, WARM TO THE TOUCH AND RED SURROUNDING THE PERMACATH. PT HAS AN IV TO RIGHT AC, SALINE LOCKED. HE STATED HE WAS STARTING TO GET THE SHAKES IN HIS UPPER EXTREMETIES WHEN I CAME ON SHIFT. MEDS WERE GIVEN TO HELP "REQUIP". PT VS STABEL AFEBRILE. PT GLUCOSE 114 TONIGHT. PT HAS A + CARDIAC MURMUR ASCULTATED BY THIS RN. PT HAS CRACKLES TO LEFT LOWER LUNG OTHERWISE CLEAR T/O ALL OTHER LOBES. ABD IS SOFT, NON DISTENDED WITH HYPOBT. PT REFUSED HIS MIRALAX. PPPX4 EXTREM. NO COMPLAINT OF PAIN CURRENTLY. WILL CONTINUE CARE DIRECTED.
[2024-04-30 23:44] VITALS: BP 107/67
[2024-05-01] VITALS (25 sets, daily range): BP systolic 96–130; BP diastolic 49–80
[2024-05-01] MEDS ORDERED: TraZODone HCl 50 MG Tab PO ONE (03:20)
[2024-05-01] MEDS ORDERED: Zolpidem Tartrate 5 MG Tab PO ONE (03:20)
--- NOTE | 2024-05-01 03:26 | NUR ---
UPDATE PT DID NOT WANT TO TAKE HIS SLEEP AIDE MEDICATION AT 2100. HE NOW IS ASKING FOR IT SINCE HE HAS NOT SLEPT ALL NIGHT. HE IS ALSO HAVING A 3AM SNACK.
[2024-05-01 03:58] LABS: Hematocrit 21.9 % (37.0-53.0); Hemoglobin 7.4 g/dL (13.5-17.5); Mean Corpuscular HGB 30.1 pg (26.0-34.0); Mean Corpuscular HGB Conc 33.8 g/dL (31.5-36.5); Mean Corpuscular Volume 89 fL (80-100); Mean Platelet Volume 10.4 fL (9.1-12.4); RDW Coefficient Variation 17.5 % (11.7-14.2); RDW Standard Deviation 55.3 fL (35.1-46.3); Red Blood Cell Count 2.46 M/mm3 (4.30-5.90); White Blood Cell Count 11.36 K/mm3 (4.00-11.30)
[2024-05-01 04:05] LABS: Platelet Count 19 K/mm3 (150-400)
[2024-05-01 04:21] LABS: Albumin, Blood 2.5 g/dL (3.4-5.0); Anion Gap 11 mmol/L (3-11); Blood Urea Nitrogen 31 mg/dL (8-24); Bun/Creatinine Ratio 5.6 (12.0-20.0); CO2, Blood 28 mmol/L (21-32); Calcium, Blood 11.9 mg/dL (8.5-10.1); Chloride, Blood 104 mmol/L (98-108); Creatinine, Blood 5.58 mg/dL (0.60-1.20); Glomerular Filtration Rate 10 (60-); Glucose, Blood 89 mg/dL (70-99); Magnesium, Blood 2.7 mg/dL (1.6-2.4); Phosphorus, Blood 5.2 mg/dL (2.5-4.9); Sodium, Blood 140 mmol/L (136-145)
[2024-05-01 04:34] LABS: BAND PERCENT MAN 1 % (0-8); BASOPHILS PERCENT MAN 0 % (0-2); EOSINOPHILS ABSOLUTE MAN 0.11 K/mm3 (0.00-0.68); EOSINOPHILS PERCENT MAN 1 % (0-6); LYMPHOCYTES % ATYPICAL MANUAL 2 % (0-0); LYMPHOCYTES ABSOLUTE MAN 8.74 K/mm3 (0.84-5.20); LYMPHOCYTES PERCENT MAN 75 % (21-46); MONOCYTES PERCENT MAN 0 % (4-13); NEUTROPHILS ABSOLUTE MAN 2.04 K/mm3 (1.96-9.15); PLASMA CELL ABSOLUTE MAN 0.45 K/mm3 (0.00-0.00); PLASMA CELLS PERCENT MAN 4 % (0-0); SEG NEUTROPHILS PERCENT MAN 17 % (41-73); TOTAL CELLS COUNTED 100
--- NOTE | 2024-05-01 06:03 | NUR ---
END OF SHIFT NOTE PT HAS HAD A RESTLESS NIGHT TONIGHT. HE HAS REMAINED AWAKE TILL 0530 THIS AM. HIS VS REMAINED STABLE. HIS PERMACATH HAS NOT BLEED OVER NIGHT, DRESSING STAID INTACT. PLATLETTS DOWN TO [address] PEARSON AWARE AND WOULD LIKE DR SILVER NOTIFED COME DAY SHIFT, UNLESS HOSPITALIST WANTS TO ADDRESS IT FIRST. PT WAS UP TO VOID T/O THE NIGHT, USING A WALKER TO MOVE ABOUT THE ROOM TO BATHROOM WITH 1 PERSON SBA. HE DOES SHUFFLE WHEN HE WALKS, HE STATED HE NORMALLY DOES NOT SHUFFLE. NO ACUTE CONCERNS OTHERWISE NOTED THUS FAR THIS AM. WILL GIVE REPORT TO ONCOMING SHIFT AT 0700 TO RESUME CARE OF PT.
--- NOTE | 2024-05-01 07:30 | NUR ---
Received in room report from [facility] NATH. Patient resting but awoke and walked to bathroom with assistance of walker and SBA from RN. Patient is alert and oriented and is able to communicate his needs. He MAEW but slow. He has IV access at [facility] and is flushed and SL'd. He has newly place trialysis cath in right upper chest that is still ozzing slightly and the single IV port SL'd. Will change dressing after Dialysis. He is getting breakfast setup by NEEDLE MOLDER. He denies any current pain or need for intervention.
[2024-05-01] MEDS ORDERED: Anticoagulant Sod Citrate Soln 3 ML SYR INJ PRN (07:45)
[2024-05-01] MEDS ORDERED: Potassium Chloride 20 MEQ TabCR PO SCH (08:00)
--- NOTE | 2024-05-01 09:00 | NUR ---
Patient tolerated am meds and breakafast he ate about 50%. Dr Elliott has been in room and assessed and ordered 1 platlet, that will be given in Dialysis. I called dialysis and they are ready for him, let them know that he will have platlets do give. He was taken down in his bed after he used bathroom .
--- NOTE | 2024-05-01 11:22 | NUR ---
Went to dialysis with platlets and we verified with process designer.
--- NOTE | 2024-05-01 11:56 | NUR ---
Patient back from dialysis, he is a little confused but clear to answer questions. His CBG 96 and no coverage needed. DATA DEVELOPER will set up for lunch shortly.
--- NOTE | 2024-05-01 13:57 | NUR ---
Patient having full linen and gown change post large loose incontinent Stool in bed and then started to bathroom, so cleaned floor as well. Patient self transferred with walker and tolerated stable well. When back in bed will clean trialysis site and wash chest and change dressing.
--- NOTE | 2024-05-01 17:39 | NUR ---
Dressing continued to leak and pulled bloody dressing and reapplied Destiny dressing and also pressure dressing with roll of 4x4 over site with foam tape. CBG was 136 and still no coverage needed. He remains on RA and sats >90%. He is alert and oriented and is able to communicate needs and wants. He is up with walker and SBA to bathroom and is independent with positioning in bed.
[2024-05-01 18:55] LABS: International Normalized Ratio 1.12; Prothrombin Time Results 11.9 Sec (9.7-11.5)
--- NOTE | 2024-05-01 22:51 | NUR ---
PT PERMACATH SITE CONTINUOUSLY OOZING. MANUAL PRESSURE HELD FOR 5 MIN. 1 UNIT FFP GIVEN W/O COMPLICATION. BLEEDING APPEARS CONTROLLED AT THIS TIME, MINIMAL NEW OOZING. PATIENT TOLERATING WELL, RESTING COMFORTABLY BETWEEN CARES. WILL FOLLOWUP WITH OBSTETRICS SCRUB NURSE AND FASHION CONSULTANT SALES.
[2024-05-02] VITALS (16 sets, daily range): BP systolic 95–138; BP diastolic 47–112
[2024-05-02 04:28] LABS: Hematocrit 19.7 % (37.0-53.0); Hemoglobin 6.5 g/dL (13.5-17.5); Mean Corpuscular HGB 29.7 pg (26.0-34.0); Mean Corpuscular Volume 90 fL (80-100); Mean Platelet Volume 10.2 fL (9.1-12.4); RDW Coefficient Variation 17.5 % (11.7-14.2); RDW Standard Deviation 55.5 fL (35.1-46.3); Red Blood Cell Count 2.19 M/mm3 (4.30-5.90); White Blood Cell Count 7.22 K/mm3 (4.00-11.30)
[2024-05-02 04:43] LABS: Platelet Count 35 K/mm3 (150-400)
[2024-05-02 04:48] LABS: Albumin, Blood 2.6 g/dL (3.4-5.0); Anion Gap 8 mmol/L (3-11); Blood Urea Nitrogen 24 mg/dL (8-24); CO2, Blood 31 mmol/L (21-32); Calcium, Blood 11.1 mg/dL (8.5-10.1); Chloride, Blood 105 mmol/L (98-108); Creatinine, Blood 4.78 mg/dL (0.60-1.20); Glomerular Filtration Rate 12 (60-); Glucose, Blood 91 mg/dL (70-99); Magnesium, Blood 2.3 mg/dL (1.6-2.4); Phosphorus, Blood 4.4 mg/dL (2.5-4.9); Potassium, Blood 3.3 mmol/L (3.5-5.5); Sodium, Blood 141 mmol/L (136-145)
--- NOTE | 2024-05-02 04:51 | NUR ---
PLT 35 AND HGB 6.[address] RN [address]ONED [address] HAYWOOD. 1 UNIT PRBC ORDERED, TO BE TRANSFUSED THIS AM. PATIENT'S PERMACATH NO LONGER BLEEDING AT THIS TIME. PRESSURE DSG IN PLACE.
[2024-05-02] MEDS ORDERED: Potassium Chloride 20 MEQ TabCR PO ONE (06:05)
--- NOTE | 2024-05-02 07:48 | NUR ---
AM ASSESSMENT: Pt resting in bed with PRBC infusing. Pt denies pain currently, no current bleeding at permacath site. Premacath site is very red, tender with large blood clot under dressing. HR reg with murmur noted. LS diminished. Pulses palp. Pt one person SBA when getting up. VSS. Call light in reach. Will continue to monitor.
--- NOTE | 2024-05-02 14:56 | NUR ---
PT REQUESTED HIS SECOND DOSE OF REQUIP FOR RESTLESS LEGS. HE CONSIDERED THE PROS AND CONS TO HAVING THAT DOSE NOW OR WAITING UNTIL LATER, HE PREFERRED TO HAVE THE DOSE NOW HE WAS HAVING QUITE A BIT OF CRAMPING. HE CONTINUES TO COUGH UP AND DISCARD HIS SPUTUM. HE IS HAVING AN ENSURE ON ICE AT THIS TIME.
--- NOTE | 2024-05-02 16:56 | NUR ---
MET WITH PATIENT TO ASSESS. HE REPORTED THAT HE WAS STARTING TO FEEL BETTER. EXPRESSED THAT HE WAS READY TO GO HOME STATED THAT THEY KEEP TELLING HIM GOING HOME TOMORROW AFTER THEY CHECK LABS, THEN THEY KEEP HIM. WE DISCUSSED GOALS AND I ENCOURAGED HIM TO REMEMBER THAT THIS IS HIS JOURNEY AND HE GETS TO DECIDE HOW HIS TREATMENT GOES AND IF HE EVER FEELS LIKE HE WANTS TO SHIFT DIRECTION AND FOCUS ON QUALITY AND COMFORT HE MAINTAINS THE RIGHT TO DECIDE. I DISCUSSED CASE WITH DR. BAKER HE IS DISCUSSING THE CASE WITH ONCOLOGY, HE RELAYED THAT HE IS OPTIMISTIC FOR A POSITIVE OUTCOME IF PATIENT IS ABLE TO CONTINUE CANCER TREATEMTNS.
--- NOTE | 2024-05-02 17:18 | NUR ---
SHIFT SUMMARY: Pt sitting up in chair. Has done well this shift. No oozing from permacath this shift. Dressing has remained dry and intact. VSS throughout shift. Pt recieved one unit PRBC this AM and tolerated well. No other changes this shift. Will report to night RN.
[2024-05-02] MEDS ORDERED: Dexamethasone Intensol 1 MG/ML 1ML Dose PO ONE (17:35)
[2024-05-02] MEDS ORDERED: dexAMETHasone 4 MG TAB PO ONE (18:30)
[2024-05-03] VITALS (16 sets, daily range): BP systolic 109–150; BP diastolic 61–116
[2024-05-03 04:15] LABS: Hematocrit 24.6 % (37.0-53.0); Hemoglobin 8.1 g/dL (13.5-17.5); Mean Corpuscular HGB 29.5 pg (26.0-34.0); Mean Corpuscular HGB Conc 32.9 g/dL (31.5-36.5); Mean Corpuscular Volume 90 fL (80-100); RDW Coefficient Variation 17.1 % (11.7-14.2); RDW Standard Deviation 53.6 fL (35.1-46.3); Red Blood Cell Count 2.75 M/mm3 (4.30-5.90); White Blood Cell Count 6.36 K/mm3 (4.00-11.30)
[2024-05-03 04:27] LABS: Albumin, Blood 2.7 g/dL (3.4-5.0); Anion Gap 13 mmol/L (3-11); Blood Urea Nitrogen 35 mg/dL (8-24); Bun/Creatinine Ratio 6.4 (12.0-20.0); CO2, Blood 25 mmol/L (21-32); Calcium, Blood 11.9 mg/dL (8.5-10.1); Chloride, Blood 105 mmol/L (98-108); Creatinine, Blood 5.49 mg/dL (0.60-1.20); Glomerular Filtration Rate 10 (60-); Glucose, Blood 217 mg/dL (70-99); Magnesium, Blood 2.5 mg/dL (1.6-2.4); Phosphorus, Blood 6.6 mg/dL (2.5-4.9); Sodium, Blood 139 mmol/L (136-145)
[2024-05-03 04:34] LABS: Platelet Count 22 K/mm3 (150-400)
--- NOTE | 2024-05-03 04:47 | NUR ---
SHIFT SUMMARY ASSUMED CARE OF PATIENT AT 1900. PATIENT ALERT AND ORIENTED x4, DENIES PAIN. COOPERATIVE WITH CARES. PATIENT HAD A RESTFUL NIGHT POST NIGHT TIME MEDS. VITALLY STABLE. RIGHT CHEST PERMACATH DID NOT HAVE ANY BLEEDING THIS SHIFT. PLTS DROPPED TO 22 THIS AM. MD AWARE. NO ACUTE EVENTS TONIGHT.
[2024-05-03] MEDS ORDERED: Anticoagulant Sod Citrate Soln 3 ML SYR INJ PRN (07:30)
[2024-05-03] MEDS ORDERED: Polyethylene Glycol 3350 17 gm PO PRN (08:16)
[2024-05-03] MEDS ORDERED: rOPINIRole HCl 0.25 MG Tab PO PRN (12:05)
--- NOTE | 2024-05-03 12:05 | NUR ---
PT JUST GOT BACK FROM DIALYSIS. AFTER HIS HD PORT DRESSING CHANGE, THEY WANT HIM TO LAY FALT WITH A SAND BAG OVER THE SITE FOR ONE HOUR. DRESSING IS C/D/I, NO BLEEDING NOTED AT THIS TIME. DR. BAKER WANTS TO BE NOTIFIED IF BLEEDING STARTS.
[2024-05-03] MEDS ORDERED: GLYCERIN 30 ML LIQUID MM SCH (15:10)
[2024-05-03] MEDS ORDERED: NS IV ONE (16:10)
[2024-05-03] MEDS ORDERED: PAMIDRONATE DISODIUM IV ONE (16:10)
--- NOTE | 2024-05-03 17:20 | NUR ---
SHIFT SUMMARY THE PT IS A&OX4, CALLS APPROPRIATELY, AND CAN MAKE HIS NEEDS KNOWN. HE IS A 1P SBA W/ FWW WHEN TRANSFERING. THE PT IS PCU STATUS WITHOUT TELE. BP STABLE. HE HAS BEEN ON RA THE ENTIRE SHIFT AND DENIES ANY SOB; SP02 >93%. THE PT HAD DIALYSIS TODAY AND HAD HIS HD CATH DRESSING CHANGED. THE DRESSING STILL REMAINS C/D/I, W/ NO SIGNS OF BLEEDING. THE ONCOLOGIST STOPPED BY AND EVALUATED THE PT THIS EVENING. NO ACUTE EVENTS. SEE NOTES FOR ANY UPDATES.
[2024-05-03] MEDS ORDERED: Docusate Sodium 100 MG Cap PO SCH (21:00)
[2024-05-04 03:43] VITALS: BP 112/61
[2024-05-04 03:47] LABS: Hematocrit 22.3 % (37.0-53.0); Hemoglobin 7.5 g/dL (13.5-17.5); Mean Corpuscular HGB Conc 33.6 g/dL (31.5-36.5); Mean Corpuscular Volume 89 fL (80-100); Mean Platelet Volume 9.8 fL (9.1-12.4); RDW Coefficient Variation 16.7 % (11.7-14.2); RDW Standard Deviation 52.2 fL (35.1-46.3); White Blood Cell Count 8.72 K/mm3 (4.00-11.30)
[2024-05-04 04:06] LABS: Platelet Count 18 K/mm3 (150-400)
[2024-05-04 04:12] LABS: Magnesium, Blood 2.2 mg/dL (1.6-2.4)
[2024-05-04] MEDS ORDERED: DiphenhydrAMINE HCL 25 MG Cap PO ONE (04:25)
[2024-05-04 04:50] LABS: Albumin, Blood 2.5 g/dL (3.4-5.0); Anion Gap 10 mmol/L (3-11); Blood Urea Nitrogen 24 mg/dL (8-24); Bun/Creatinine Ratio 5.6 (12.0-20.0); CO2, Blood 30 mmol/L (21-32); Calcium, Blood 10.3 mg/dL (8.5-10.1); Chloride, Blood 104 mmol/L (98-108); Creatinine, Blood 4.25 mg/dL (0.60-1.20); Glomerular Filtration Rate 14 (60-); Glucose, Blood 96 mg/dL (70-99); Sodium, Blood 141 mmol/L (136-145)
[2024-05-04 04:51] LABS: Phosphorus, Blood 3.1 mg/dL (2.5-4.9)
--- NOTE | 2024-05-04 05:28 | NUR ---
SHIFT SUMMARY PATIENT ALERT AND ORIENTED x4, ABLE TO MAKE NEEDS KNOWN TO STAFF. NO TELE. BP STABLE. PATIENT REMAINED ON RA DURING THE NIGHT WITH SPO2 >90%. PATIENT AMBULATING INTO BATHROOM USING WALKER AND ASSISTANCE. PATIENT REPORTING CONSTIPATION BUT IS CONTINUING TO PASS GAS. PRN/SCHEDULED STOOL SOFTENERS GIVEN PER REQUEST. ADEQUATE URINE OUTPUT. TOLERATING PO. PATIENT PULLED OFF PERMACATH DRESSING. SITE CLEANED WITH CHLORAHEXIDINE AND COVERED WITH CHG DRESSING. PATIENT REPORTING IRRITATION/ITCHING, OT DOSE OF BENADRYL GIVEN. NO OTHER CHANGES DURING THE NIGHT, WILL REPORT TO DAY SHIFT RN.
[2024-05-04 07:31] VITALS: BP 114/60
[2024-05-04] MEDS ORDERED: Potassium Chloride 20 MEQ TabCR PO SCH (08:00)
[2024-05-04] MEDS ORDERED: Spironolactone 25 MG Tab PO SCH (09:00)
--- NOTE | 2024-05-04 12:53 | NUR ---
report received verified. pt arrived from [facility] a/o x4 flat affect, pt wanting to go home. has no complaints but is just ready to go. platelets are still low and permacath is currently C/D/I. pt feeding self.
[2024-05-04 15:58] VITALS: BP 112/62
[2024-05-04 20:32] VITALS: BP 122/67
[2024-05-05] VITALS (16 sets, daily range): BP systolic 91–130; BP diastolic 56–72
[2024-05-05] MEDS ORDERED: DiphenhydrAMINE HCL 25 MG Cap PO PRN (00:09)
[2024-05-05 04:49] LABS: Hematocrit 20.8 % (37.0-53.0); Hemoglobin 7.1 g/dL (13.5-17.5); Mean Corpuscular HGB 30.9 pg (26.0-34.0); Mean Corpuscular HGB Conc 34.1 g/dL (31.5-36.5); Mean Corpuscular Volume 90 fL (80-100); Mean Platelet Volume 11.4 fL (9.1-12.4); RDW Standard Deviation 53.7 fL (35.1-46.3); White Blood Cell Count 6.07 K/mm3 (4.00-11.30)
[2024-05-05 05:09] LABS: Platelet Count 11 K/mm3 (150-400)
[2024-05-05 05:43] LABS: Albumin, Blood 2.5 g/dL (3.4-5.0); Anion Gap 11 mmol/L (3-11); Blood Urea Nitrogen 30 mg/dL (8-24); Bun/Creatinine Ratio 5.6 (12.0-20.0); CO2, Blood 29 mmol/L (21-32); Calcium, Blood 10.5 mg/dL (8.5-10.1); Chloride, Blood 105 mmol/L (98-108); Creatinine, Blood 5.31 mg/dL (0.60-1.20); Glomerular Filtration Rate 11 (60-); Glucose, Blood 112 mg/dL (70-99); Magnesium, Blood 2.3 mg/dL (1.6-2.4); Phosphorus, Blood 3.4 mg/dL (2.5-4.9); Potassium, Blood 2.9 mmol/L (3.5-5.5); Sodium, Blood 142 mmol/L (136-145)
--- NOTE | 2024-05-05 05:45 | NUR ---
SHIFT SUMMARY PATIENT ALERT AND ORIENTED x3-4, SEEMS TO BE MORE FORGETFUL THIS SHIFT THAN LAST DATABASE SECURITY ADMINISTRATOR. VSS. PATIENT ON RA. AMBULATING IN ROOM AND TO BATHROOM SBA, ADEQUATE OUTPUT. PATIENT REPORTED ITCHING TO RIGHT CHEST. HOSPITALIST ORDERED PRN BENADRYL FOR COMFORT. SKIN IS VERY IRRITATED FROM MULTIPLE ADHESIVE REMOVALS etc. D/T BLEEDING AT PERMACATH SITE. SITE DID BLEED THIS SHIFT AROUND 0400. PATIENT CLEANED UP. CHLORHEXADINE SWABBED AROUND PERMACATH INSERTION, CALCIUM ALGINATE PLACED TO ASSIST WITH CLOTTING. TEGADERM PLACED OVER SITE. PRESSURE DRESSING PLACED TO RIGHT UPPER CHEST/SHOULDER. OTHERWISE, NO OTHER SIGNIFICANT CHANGES THIS SHIFT, WILL REPORT TO DAY SHIFT RN.
[2024-05-05] MEDS ORDERED: Anticoagulant Sod Citrate Soln 3 ML SYR INJ PRN (07:15)
[2024-05-05] MEDS ORDERED: Potassium Chloride 20 MEQ TabCR PO ONE (07:15)
[2024-05-05] MEDS ORDERED: Albumin (Human) 25gm/100ml 100 ML IV PRN (07:20)
[2024-05-05 12:09] LABS: Hematocrit 22.3 % (37.0-53.0); Hemoglobin 7.4 g/dL (13.5-17.5); Mean Platelet Volume 9.2 fL (9.1-12.4)
[2024-05-05 12:23] LABS: Platelet Count 10 K/mm3 (150-400)
[2024-05-05] MEDS ORDERED: Darbepoetin Alfa In Albumn Sol 40 MCG/0.4 ML SC ONE (16:00)
--- NOTE | 2024-05-05 18:18 | NUR ---
SHIFT SUMMARY PT A&OX4, VSS, AMB W/ 1P ASSIST, TOLERATING PO, VOIDING, AND PAIN MANAGED PER EMAR. PT CRITICAL PLT OF 10 AND POTASSIUM LAB OF 2.9. ORAL POTASSIUM GIVEN. PRESSURE DRESSING REMAINS C/D/I. PT HAD DIALYSIS AND TOLERATED IT WELL. NO OTHER ACUTE CHANGES THIS SHIFT. CALL LIGHT WITHIN REACH AND PT ABLE TO MAKE NEEDS KNOWN.
[2024-05-06 04:19] VITALS: BP 124/72
[2024-05-06 05:03] LABS: Hematocrit 22.4 % (37.0-53.0); Hemoglobin 7.2 g/dL (13.5-17.5); Mean Corpuscular HGB 29.6 pg (26.0-34.0); Mean Corpuscular HGB Conc 32.1 g/dL (31.5-36.5); Mean Corpuscular Volume 92 fL (80-100); Mean Platelet Volume 8.5 fL (9.1-12.4); RDW Coefficient Variation 16.9 % (11.7-14.2); RDW Standard Deviation 54.4 fL (35.1-46.3); Red Blood Cell Count 2.43 M/mm3 (4.30-5.90); White Blood Cell Count 9.95 K/mm3 (4.00-11.30)
[2024-05-06 05:15] LABS: Platelet Count 8 K/mm3 (150-400)
--- NOTE | 2024-05-06 05:51 | NUR ---
SHIFT SUMMARY PT A&OX3-4 AND ANSWERS QUESTIONS APPROPRIATELY. PT PRESSURE DRESSING ON UPPER CHEST WAS REMOVED DURING SLEEP, NO SIGNS OF ACTIVE LEAKING/BLEEDING. PT MEDICATED PER EMAR. PT VSS, NO COMPLAINTS OF CP/PRESSURE OR SOB. PT HAS CRITICAL HGB AT 8, DR MACIEL CALLED AND PLATELETS ORDERED TO ADMINISTER. AWAIING SLIP TO VERIFY. PT SPENT MOST OF NIGHT RESTING IN BED WITH EYES CLOSED AND RESPIRATIONS EVEN AND UNLABORED. PT REPOSITIONED [id number]. PROPER FALL PRECAUTIONS IN PLACE AND CALL LIGHT IN REACH.
[2024-05-06 06:27] VITALS: BP 130/70
[2024-05-06 06:42] VITALS: BP 126/72
--- NOTE | 2024-05-06 06:43 | NUR ---
TRANSFUSION STARTED AT 0630, VITALS CHECKED AT 0642, INFUSION RATE INCREASED. NO ADVERSE EFFECTS AT THIS TIME.
[2024-05-06 08:58] VITALS: BP 119/66
[2024-05-06] MEDS ORDERED: ALLO100 PO (13:34)
[2024-05-06] MEDS ORDERED: B-COMPLEX WITH1 EACH PO (13:35)
[2024-05-06] MEDS ORDERED: BANOPHEN25 MG PO (13:36)
[2024-05-06] MEDS ORDERED: PROCTOCORT TOP (13:37)
[2024-05-06] MEDS ORDERED: MIRALAX17 GM PO (13:37)
[2024-05-06] MEDS ORDERED: Aldactone25 MG PO (13:38)
[2024-05-06] MEDS ORDERED: SEVEC800 PO (13:38)
--- NOTE | 2024-05-06 18:02 | NUR ---
PT AWAKE DURING SHIFT REPORT. PLEASANT AND CO-OP WITH CARE. PLATELETS INFUSING PER ORDERS DURING REPORT. DR BAKER IN TO SEE PT AND DISCUSS PLAN OF CARE. CATERING ASSOCIATE CALLED TO STATE PT WOULD NOT HAVE DIALYSIS TODAY. PT ABLE TO D/C TO HOME AND F/U WITH [facility] OUTPT. PT UP INDEPENDENTLY IN WITH SBA TO [facility]THRM. D/C ORDERS PLACED. [facility] REQUEST. VISITORS TO BRIEFLY PRIOR TO GOING HOME. FAMILY HERE TO TAKE PT HOME; ASSISTED DOWN VIA W/C BY FAMILY. ALL BELONGINGS WENT WITH PT.
== END 2024-05-06 15:28 | disposition home health service (06) | DRG 674 ==
LOC: ER 20:36 → ERHOLD 04-21 01:01 → ICUE 04-21 01:01 → MEDS 04-21 01:01 → PCU 04-21 01:01 → ICUE 04-21 03:35 → MEDS 04-21 10:17 → PCU 04-29 23:05 → MEDS 05-04 12:45
PROVIDERS: Emergency Medicine; Family Medicine; Internal Medicine; Internal Medicine Nephrology; Nurse Practitioner; Surgery; ADMIT Student in an Organized Health Care Education/Training Program
PROC: 30233N1 Transfusion of Nonautologous Red Blood Cells into Peripheral Vein, Percutaneous Approach (ICD-10-PCS; 2024-04-21)
PROC: B518ZZA Fluoroscopy of Superior Vena Cava, Guidance (ICD-10-PCS; 2024-04-22)
PROC: 5A1D70Z Performance of Urinary Filtration, Intermittent, Less than 6 Hours Per Day (ICD-10-PCS; 2024-04-22)
PROC: 30233L1 Transfusion of Nonautologous Fresh Plasma into Peripheral Vein, Percutaneous Approach (ICD-10-PCS; 2024-04-22)
PROC: 30233R1 Transfusion of Nonautologous Platelets into Peripheral Vein, Percutaneous Approach (ICD-10-PCS; 2024-04-22)
PROC: 0JH63XZ Insertion of Tunneled Vascular Access Device into Chest Subcutaneous Tissue and Fascia, Percutaneous Approach (ICD-10-PCS; 2024-04-22)
PROC: 02HV33Z Insertion of Infusion Device into Superior Vena Cava, Percutaneous Approach (ICD-10-PCS; principal; 2024-04-22 13:00)
DX: N17.9 Acute kidney failure, unspecified (principal); C90.00 Multiple myeloma not having achieved remission; T82.838A Hemorrhage due to vascular prosthetic devices, implants and grafts, initial encounter; D61.818 Other pancytopenia; I12.0 Hypertensive chronic kidney disease with stage 5 chronic kidney disease or end stage renal disease; E46 Unspecified protein-calorie malnutrition; Z66 Do not resuscitate; N18.6 End stage renal disease; E83.52 Hypercalcemia; E11.22 Type 2 diabetes mellitus with diabetic chronic kidney disease; E83.39 Other disorders of phosphorus metabolism; E87.6 Hypokalemia; E03.9 Hypothyroidism, unspecified; Z60.2 Problems related to living alone; F17.210 Nicotine dependence, cigarettes, uncomplicated; E86.9 Volume depletion, unspecified; E88.09 Other disorders of plasma-protein metabolism, not elsewhere classified; Z79.890 Hormone replacement therapy; Z79.4 Long term (current) use of insulin; Z99.2 Dependence on renal dialysis; Z68.26 Body mass index [BMI] 26.0-26.9, adult
CPT/HCPCS: 36415; 36430; 71045; 77001; 80053; 80069; 80074; 80076; 81001; 82570; 82947; 82955; 83735; 84100; 84132; 84145; 84300; 84550; 85014; 85018; 85025; 85027; 85045; 85049; 85610; 86850; 86900; 86901; 86923; 93005; 93010; 94760; 94762; 96360; 96361; 97110; 97116; 97161; 99285-25; A9270; C1750; J0630; J0690; J0881; J1100; J1644; J1815; J2001; J2250; J2371; J2405; J2430; J2597; J2704; J2783; J3010; J7030; J7040; J7120; J9041; P9012; P9016; P9035; P9059